=== PATIENT | female | born 1960 | race Caucasian/White ===

== ENCOUNTER → 2016-05-27 | Outpatient (REF) | payer BC ==
[~2016-05-27] MED LIST: BUPR1TAB17 PO; GABA-279 PO; LISI-542 PO; METF1000 PO; SIMV40TA2 PO; TYLE1000 PO; ZOLP5TAB PO
== END ==
LOC: M LAB REF 14:57
PROVIDERS: ATTEND Internal Medicine Medical Oncology
DX: C54.1 Malignant neoplasm of endometrium (principal)

== ENCOUNTER → 2016-05-29 | Outpatient (CLI) | payer BC | LOC: M HL 10:39 | PROVIDERS: ATTEND Physician Assistant | DX: Z71.3 Dietary counseling and surveillance (principal); E11.65 Type 2 diabetes mellitus with hyperglycemia ==

== ENCOUNTER → 2016-07-02 | Outpatient (CLI) | payer BC | LOC: M HL 11:00 | PROVIDERS: ATTEND Physician Assistant | DX: Z71.3 Dietary counseling and surveillance (principal); E11.65 Type 2 diabetes mellitus with hyperglycemia ==

== ENCOUNTER → 2016-09-25 | Outpatient (REF) | payer BC | LOC: M LAB REF 16:50 | PROVIDERS: ATTEND Internal Medicine Medical Oncology | DX: C54.1 Malignant neoplasm of endometrium (principal) ==

== ENCOUNTER → 2016-09-30 | Outpatient (REF) | payer BC ==
[2016-09-30 12:41] LABS: ALBUMIN 3.6 GM/DL (3.2-5.2); ALBUMIN/GLOBULIN RATIO 1.09 (1.00-1.93); ALKALINE PHOSPHATASE 78 U/L (45-117); ALT/SGPT 15 U/L (12-78); ANION GAP 10 MEQ/L (8-16); AST/SGOT 16 U/L (15-37); BILIRUBIN,TOTAL 0.3 MG/DL (0.2-1.0); BLOOD UREA NITROGEN 26 MG/DL (7-18); CARBON DIOXIDE LEVEL 23 MEQ/L (21-32); CHLORIDE LEVEL 107 MEQ/L (98-107); CHOLESTEROL LEVEL 149 MG/DL (<200); CREATININE FOR GFR 0.91 MG/DL (0.55-1.02); GLOMERULAR FILTRATION RATE > 60.0 (>51); GLUCOSE, FASTING 123 MG/DL (70-105); POTASSIUM SERUM 4.6 MEQ/L (3.5-5.1); SODIUM LEVEL 140 MEQ/L (136-145); TOTAL PROTEIN 6.9 GM/DL (6.4-8.2); TRIGLYCERIDES LEVEL 67 MG/DL (<150)
== END ==
LOC: M LABDRAW1 11:26
PROVIDERS: ATTEND Physician Assistant
DX: E11.65 Type 2 diabetes mellitus with hyperglycemia (principal); E78.5 Hyperlipidemia, unspecified

== ENCOUNTER → 2016-10-22 | Outpatient (CLI) | payer BC ==
--- NOTE | 2016-10-22 14:38 | REP ---
FOCUSED LEFT BREAST ULTRASOUND: HISTORY: Palpable mass left breast at 11-o'clock position at the sternal border. Comparison mammography April 16, 2016. FINDINGS: Scanning in the region of the 11-o'clock position mass as directed by the patient shows normal subcutaneous and underlying skeletal muscle soft tissue. No cyst, mass, acoustic shadowing or architectural distortion is seen. IMPRESSION: BIRADS category 1 negative focused left breast sonography. This negative report should not dissuade one from biopsy of a palpable lump depending on its clinical characteristics. Clinical follow-up is advised.
== END ==
LOC: M WHC 12:55
PROVIDERS: ATTEND Physician Assistant
DX: N63 Unspecified lump in breast (principal)

== ENCOUNTER → 2017-01-27 | Outpatient (REF) | payer BC, MEDICAID, SELFPAY ==
[~2017-01-27] MED LIST changes: -BUPR1TAB17 PO; +BUPR1TAB53 PO; -METF1000 PO; +METF10004 PO
== END ==
LOC: M LABDRAW1 15:42
PROVIDERS: ATTEND Physician Assistant
DX: Z11.59 Encounter for screening for other viral diseases (principal)

== ENCOUNTER → 2017-06-26 | Outpatient (CLI) | payer OTHER | LOC: M WHC 10:32 | DX: Z12.31 Encounter for screening mammogram for malignant neoplasm of breast (principal) | CPT/HCPCS: 77067 ==

== ENCOUNTER → 2017-06-26 | Outpatient (REF) | payer OTHER | LOC: M SFHCWAGY 11:07 | DX: Z08 Encounter for follow-up examination after completed treatment for malignant neoplasm (principal) ==

== ENCOUNTER → 2017-07-31 | Outpatient (REF) | payer OTHER ==
[2017-08-01 11:13] LABS: CA 125 10.9 U/ML (<30.2)
== END ==
LOC: M LAB REF 13:45
DX: C54.1 Malignant neoplasm of endometrium (principal)

== ENCOUNTER → 2017-09-16 | Outpatient (REF) | payer OTHER ==
[2017-09-16 13:03] LABS: ANION GAP 8 MEQ/L (8-16); BLOOD UREA NITROGEN 23 MG/DL (7-18); CALCIUM LEVEL 9.3 MG/DL (8.5-10.1); CARBON DIOXIDE LEVEL 27 MEQ/L (21-32); CHLORIDE LEVEL 107 MEQ/L (98-107); CHOLESTEROL LEVEL 134 MG/DL (<200); CHOLESTEROL RISK RATIO 2.093 (<5); CREATININE FOR GFR 0.99 MG/DL (0.55-1.30); GLOMERULAR FILTRATION RATE > 60.0 (>51); GLUCOSE, FASTING 121 MG/DL (70-100); HDL CHOLESTEROL 64 MG/DL (>40); LDL CHOLESTEROL 55.4 MG/DL (<100); NON-HDL-C 70 MG/DL; POTASSIUM SERUM 4.8 MEQ/L (3.5-5.1); SODIUM LEVEL 142 MEQ/L (136-145); TRIGLYCERIDES LEVEL 73 MG/DL (<150)
[2017-09-16 13:49] LABS: ESTIMATED AVERAGE GLUCOSE 134 MG/DL (60-110); HEMOGLOBIN A1c 6.3 %
[2017-09-16 13:50] LABS: MALB URINE SIEMENS 10.9 MG/L; MAU/CREAT RATIO 7.7 MCG/MG (0.0-30.0)
== END ==
LOC: M SFHCPLAZ 09:15
DX: E11.65 Type 2 diabetes mellitus with hyperglycemia (principal)

== ENCOUNTER → 2017-12-09 | Outpatient (CLI) | payer OTHER | LOC: M PAIN 14:15 | DX: M79.1 Myalgia (principal); M54.5 Low back pain; M54.6 Pain in thoracic spine; G89.29 Other chronic pain; M46.96 Unspecified inflammatory spondylopathy, lumbar region; M25.561 Pain in right knee; M25.562 Pain in left knee; L40.9 Psoriasis, unspecified; F32.9 Major depressive disorder, single episode, unspecified; F41.9 Anxiety disorder, unspecified; E11.9 Type 2 diabetes mellitus without complications; M19.90 Unspecified osteoarthritis, unspecified site; E66.01 Morbid (severe) obesity due to excess calories; Z68.43 Body mass index [BMI] 50.0-59.9, adult; Z79.84 Long term (current) use of oral hypoglycemic drugs; Z79.899 Other long term (current) drug therapy; Z88.1 Allergy status to other antibiotic agents; Z88.8 Allergy status to other drugs, medicaments and biological substances; Z91.010 Allergy to peanuts; Z87.891 Personal history of nicotine dependence | CPT/HCPCS: G0463 ==

== ENCOUNTER → 2017-12-25 | Outpatient (REF) | payer OTHER | LOC: M SFHCWAGY 11:48 | DX: Z85.42 Personal history of malignant neoplasm of other parts of uterus (principal); Z08 Encounter for follow-up examination after completed treatment for malignant neoplasm | CPT/HCPCS: 88142 ==

== ENCOUNTER → 2017-12-31 | Outpatient (CLI) | payer OTHER ==
[~2017-12-31] MED LIST changes: +BUPIVACAINE HCL 0.25% 10 ML VIAL As Ordered; +BUPIVACAINE HCL 0.25% 30 ML VIAL As Ordered; -BUPR1TAB53 PO; -GABA-279 PO; -LISI-542 PO; -METF10004 PO; -SIMV40TA2 PO; +TRIAMCINOLONE ACETONIDE SUSP 40 MG/ML VIAL (J3301) As Ordered; -TYLE1000 PO; -ZOLP5TAB PO; +diazePAM 5 MG TAB As Ordered
== END ==
LOC: M PAIN 14:45
DX: G89.29 Other chronic pain (principal); M79.1 Myalgia; M54.5 Low back pain; E11.9 Type 2 diabetes mellitus without complications; F32.9 Major depressive disorder, single episode, unspecified; F41.9 Anxiety disorder, unspecified; L40.9 Psoriasis, unspecified; M19.90 Unspecified osteoarthritis, unspecified site; E66.01 Morbid (severe) obesity due to excess calories; Z68.43 Body mass index [BMI] 50.0-59.9, adult; Z79.1 Long term (current) use of non-steroidal anti-inflammatories (NSAID); Z79.84 Long term (current) use of oral hypoglycemic drugs; Z79.899 Other long term (current) drug therapy; Z88.1 Allergy status to other antibiotic agents; Z88.8 Allergy status to other drugs, medicaments and biological substances; Z91.010 Allergy to peanuts; Z90.710 Acquired absence of both cervix and uterus; Z87.891 Personal history of nicotine dependence
CPT/HCPCS: J3301

== ENCOUNTER → 2018-01-07 | Outpatient (REF) | payer OTHER ==
[2018-01-07 12:17] LABS: ERYTHROCYTE SEDIMENTATION RATE 54 mm/hr (0-30)
[2018-01-07 12:38] LABS: C REACTIVE PROTEIN QUANTITATIV 1.08 MG/DL (0.00-0.30)
[2018-01-07 12:38] LABS: RHEUMATOID FACTOR QUANT < 10.0 IU/ML (<15.0)
[2018-01-14 14:18] LABS: ANTINUCLEAR ANTIBODIES DIRECT Negative (Negative); HLA-B27 Negative (.)
== END ==
LOC: M SFHCPLAZ 08:27
DX: M13.0 Polyarthritis, unspecified (principal)

== ENCOUNTER → 2018-01-09 | Outpatient (CLI) | payer OTHER | LOC: M RAD 11:13 | DX: M25.562 Pain in left knee (principal) | CPT/HCPCS: 73560 ==

== ENCOUNTER → 2018-02-02 | Outpatient (CLI) | payer OTHER ==
[~2018-02-02] MED LIST changes: -BUPIVACAINE HCL 0.25% 10 ML VIAL As Ordered; +ISOVUE-M 300 61% 15ML VIAL (Q9967) As Ordered; +LIDOCAINE 1% SDV INJ 30 ML VIAL As Ordered; -TRIAMCINOLONE ACETONIDE SUSP 40 MG/ML VIAL (J3301) As Ordered; -diazePAM 5 MG TAB As Ordered
== END ==
LOC: M PAIN 11:15
DX: G89.29 Other chronic pain (principal); M47.816 Spondylosis without myelopathy or radiculopathy, lumbar region; M47.817 Spondylosis without myelopathy or radiculopathy, lumbosacral region; F32.9 Major depressive disorder, single episode, unspecified; F41.9 Anxiety disorder, unspecified; E11.9 Type 2 diabetes mellitus without complications; L40.9 Psoriasis, unspecified; G47.30 Sleep apnea, unspecified; E66.01 Morbid (severe) obesity due to excess calories; Z68.43 Body mass index [BMI] 50.0-59.9, adult; Z79.84 Long term (current) use of oral hypoglycemic drugs; Z79.899 Other long term (current) drug therapy; Z88.1 Allergy status to other antibiotic agents; Z88.8 Allergy status to other drugs, medicaments and biological substances; Z91.010 Allergy to peanuts; Z90.710 Acquired absence of both cervix and uterus; Z87.891 Personal history of nicotine dependence; Z85.40 Personal history of malignant neoplasm of unspecified female genital organ
CPT/HCPCS: Q9967

== ENCOUNTER → 2018-02-03 | Outpatient (REF) | payer OTHER | LOC: M LAB REF 13:34 | DX: C54.1 Malignant neoplasm of endometrium (principal) | CPT/HCPCS: 86304 ==

== ENCOUNTER → 2018-03-02 | Outpatient (CLI) | payer OTHER | LOC: M PAIN 11:00 | DX: M79.18 Myalgia, other site (principal); E11.9 Type 2 diabetes mellitus without complications; L40.9 Psoriasis, unspecified; G47.33 Obstructive sleep apnea (adult) (pediatric); M19.90 Unspecified osteoarthritis, unspecified site; F32.9 Major depressive disorder, single episode, unspecified; F41.9 Anxiety disorder, unspecified; E66.01 Morbid (severe) obesity due to excess calories; Z68.43 Body mass index [BMI] 50.0-59.9, adult; Z79.84 Long term (current) use of oral hypoglycemic drugs; Z79.899 Other long term (current) drug therapy; Z88.1 Allergy status to other antibiotic agents; Z88.8 Allergy status to other drugs, medicaments and biological substances; Z91.010 Allergy to peanuts; Z90.710 Acquired absence of both cervix and uterus; Z85.42 Personal history of malignant neoplasm of other parts of uterus; Z87.891 Personal history of nicotine dependence | CPT/HCPCS: G0463 ==

== ENCOUNTER → 2018-06-01 | Outpatient (REF) | payer OTHER ==
[~2018-06-01] MED LIST changes: -BUPIVACAINE HCL 0.25% 30 ML VIAL As Ordered; +BUPR1TAB53 PO; +GABA-1171 PO; -ISOVUE-M 300 61% 15ML VIAL (Q9967) As Ordered; -LIDOCAINE 1% SDV INJ 30 ML VIAL As Ordered; +LISI-542 PO; +METF10004 PO; +SIMV40TA2 PO; +TRUL0.5I SC; +TYLE1000 PO; +ZOLP5TAB PO
[2018-06-01 13:03] LABS: CHOLESTEROL RISK RATIO 2.56 (<5)
[2018-06-01 13:07] LABS: CALCIUM LEVEL 9.5 MG/DL (8.5-10.1); CREATININE FOR GFR 1.1 MG/DL (0.55-1.30); GLOMERULAR FILTRATION RATE 54.3 (>51)
[2018-06-01 14:24] LABS: HEMOGLOBIN A1c 6.3 %
[2018-06-01 14:55] LABS: MALB URINE SIEMENS 30.6 MG/L
== END ==
LOC: M SFHCPLAZ 09:18
PROVIDERS: ATTEND Family Medicine
DX: E11.65 Type 2 diabetes mellitus with hyperglycemia (principal); E78.5 Hyperlipidemia, unspecified

== ENCOUNTER → 2018-06-04 | Outpatient (REF) | payer OTHER | LOC: M SFHCPLAZ 15:19 | PROVIDERS: ATTEND Internal Medicine Rheumatology | DX: M25.50 Pain in unspecified joint (principal) ==

== ENCOUNTER → 2018-06-09 | Outpatient (CLI) | payer OTHER ==
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
== END ==
LOC: M PAIN 13:00
PROVIDERS: ATTEND Nurse Practitioner Family
DX: G62.9 Polyneuropathy, unspecified (principal); G89.29 Other chronic pain; M79.7 Fibromyalgia; F32.9 Major depressive disorder, single episode, unspecified; F41.9 Anxiety disorder, unspecified; E11.65 Type 2 diabetes mellitus with hyperglycemia; E11.40 Type 2 diabetes mellitus with diabetic neuropathy, unspecified; M19.90 Unspecified osteoarthritis, unspecified site; M06.9 Rheumatoid arthritis, unspecified; E66.01 Morbid (severe) obesity due to excess calories; Z68.43 Body mass index [BMI] 50.0-59.9, adult; Z92.3 Personal history of irradiation; Z92.21 Personal history of antineoplastic chemotherapy; Z87.891 Personal history of nicotine dependence; Z88.1 Allergy status to other antibiotic agents; Z88.8 Allergy status to other drugs, medicaments and biological substances; Z91.010 Allergy to peanuts; Z79.84 Long term (current) use of oral hypoglycemic drugs; Z79.899 Other long term (current) drug therapy

== ENCOUNTER → 2018-06-15 | Outpatient (CLI) | payer OTHER ==
--- NOTE | 2018-06-15 14:54 | REP ---
Clinical: Polyarthralgia. Technique: Single AP weightbearing view of the right and left knee. Findings: Advanced tricompartmental osteoarthritic degenerative changes are appreciated. Findings include joint space narrowing primarily involving the medial compartments as well as osteophytosis, subchondral sclerosis and chondrocalcinosis. Impression: Symmetric advanced tricompartmental osteoarthritic changes. Electronically Signed by Zia Black MD 06/15/2018 02:46 P
--- NOTE | 2018-06-15 14:56 | REP ---
Clinical: Polyarthralgia. Technique: AP, lateral, bilateral oblique views of the right and left hand. Findings: Mild osteoarthritic degenerative changes include subtle subchondral sclerosis and minimal joint space narrowing primarily involving the interphalangeal joints. Findings appear relatively symmetric. Moderate osteoarthritic degenerative changes are also identified at the first carpometacarpal joints bilaterally (right greater than left) including subchondral heterogeneity, joint space narrowing and subluxation as well as subtle periarticular spurring. Osteoarthritic changes at the radiocarpal joint lines are also identified including subchondral sclerosis, mild joint space narrowing and small amounts of chondrocalcinosis Impression: Osteoarthritic degenerative changes as noted above. Electronically Signed by Zia Black MD 06/15/2018 02:48 P
== END ==
LOC: M RAD 14:15
PROVIDERS: ATTEND Internal Medicine Rheumatology
DX: M25.50 Pain in unspecified joint (principal)

== ENCOUNTER → 2018-09-02 | Outpatient (REF) | payer OTHER ==
[~2018-09-02] MED LIST changes: +DICL50TAB PO; +GABA800T4 PO
== END ==
LOC: M SFHCWAGY 10:45
PROVIDERS: ATTEND Nurse Practitioner Family
DX: Z12.72 Encounter for screening for malignant neoplasm of vagina (principal)

== ENCOUNTER → 2018-09-02 | Outpatient (CLI) | payer OTHER ==
--- NOTE | 2018-09-02 14:35 | REPMRS ---
Patient History The patient states she had a clinical breast exam in 08/2018. Patient is postmenopausal, has history of endometrial cancer at age 54, had previous chemotherapy at age 54, and had first child at age 33. Family history of endometrial cancer at age 57 in mother. No Hormone Replacement Therapy Digital Woman Screen Mammo: September 02, 2018 - Exam #: [id number] Bilateral CC and MLO view(s) were taken. Technologist: Pam Pérez, Technologist Prior study comparison: June 26, 2017, digital woman screen mammo performed at [facility] Anne Fogarty to [employer]. April 16, 2016, digital woman screen mammo performed at [facility] Anne Fogarty to [employer]. FINDINGS: The breast tissue is almost entirely fat. There has been no change in the appearance of the mammogram from the prior studies. There is no interval development of dominant mass, architectural distortion, or clustered microcalcification typical of malignancy. 3-D tomosynthesis shows no additional findings. Assessment: BI-RADS/ACR category 1 mammogram. Negative Mammogram. Recommendation Routine screening mammogram of both breasts in 1 year (for women over age 40). This patient's Lifetime Breast Cancer RIsk is estimated at 12.6 %. This mammogram was interpreted with the aid of an FDA-approved computer-aided dectection system. Electronically Signed By: Viral Orr MD 09/02/18 [id number]
== END ==
LOC: M WHC 10:35
PROVIDERS: ATTEND Nurse Practitioner Family
DX: Z12.31 Encounter for screening mammogram for malignant neoplasm of breast (principal)

== ENCOUNTER → 2018-09-04 | Outpatient (CLI) | payer OTHER | LOC: M PAIN 10:30 | PROVIDERS: ATTEND Nurse Practitioner Family | DX: G62.9 Polyneuropathy, unspecified (principal); G89.29 Other chronic pain; M79.7 Fibromyalgia; Z86.59 Personal history of other mental and behavioral disorders; E11.9 Type 2 diabetes mellitus without complications; M19.90 Unspecified osteoarthritis, unspecified site; G56.03 Carpal tunnel syndrome, bilateral upper limbs; Z87.891 Personal history of nicotine dependence; Z88.1 Allergy status to other antibiotic agents; Z88.8 Allergy status to other drugs, medicaments and biological substances; Z91.010 Allergy to peanuts; E66.01 Morbid (severe) obesity due to excess calories; Z68.43 Body mass index [BMI] 50.0-59.9, adult; Z79.84 Long term (current) use of oral hypoglycemic drugs; Z79.899 Other long term (current) drug therapy ==

== ENCOUNTER → 2018-09-10 | Outpatient (REF) | payer OTHER ==
[2018-09-10 16:44] LABS: BLOOD UREA NITROGEN 21 MG/DL (7-18); C REACTIVE PROTEIN QUANTITATIV 0.58 MG/DL (0.00-0.30); CARBON DIOXIDE LEVEL 27 MEQ/L (21-32); CHLORIDE LEVEL 107 MEQ/L (98-107); CPK CREATINE PHOSPHOKINASE 56 U/L (26-192); CREATININE FOR GFR 1.08 MG/DL (0.55-1.30); GLOMERULAR FILTRATION RATE 55.5 (>51); GLUCOSE, FASTING 140 MG/DL (70-100); MAGNESIUM LEVEL 1.5 MG/DL (1.8-2.4); NT-PRO BNP 188 PG/ML (<125); POTASSIUM SERUM 4.9 MEQ/L (3.5-5.1); SODIUM LEVEL 141 MEQ/L (136-145); TROPONIN I < 0.02 NG/ML (< 0.10)
== END ==
LOC: M SFHCPLAZ 15:33
PROVIDERS: ATTEND Family Medicine
DX: M62.81 Muscle weakness (generalized) (principal); R07.9 Chest pain, unspecified

== ENCOUNTER → 2018-10-19 | Outpatient (REF) | payer OTHER ==
[2018-10-19 13:40] LABS: RUBELLA IgG QUALITATIVE IMMUNE (IMMUNE)
[2018-10-20 10:28] LABS: MUMPS VIRUS IgG ANTIBODY 21.3 AU/mL (Immune >10.9); RUBEOLA IgG ANTIBODY <25.0 AU/mL (Immune >29.9)
== END ==
LOC: M SFHCPLAZ 10:54
PROVIDERS: ATTEND Family Medicine
DX: Z78.9 Other specified health status (principal)

== ENCOUNTER → 2018-12-01 | Outpatient (REF) | payer OTHER ==
[2018-12-01 13:41] LABS: FREE T4 1.01 NG/DL (0.76-1.46); THYROID STIMULATING HORMONE 1.95 uIU/ML (0.358-3.740)
[2018-12-01 13:42] LABS: TOTAL 25(OH) VITAMIN D 14.8 NG/ML (30.0-100.0)
== END ==
LOC: M SFHCPLAZ 11:16
PROVIDERS: ATTEND Family Medicine
DX: R05 Cough (principal); M62.81 Muscle weakness (generalized); R53.82 Chronic fatigue, unspecified

== ENCOUNTER → 2018-12-02 | Outpatient (CLI) | payer OTHER ==
--- NOTE | 2018-12-02 12:32 | REP ---
PA and lateral chest: Comparison is 07/27/2001.The lung anthony are clear. The cardiac size is normal. The abdon, mediastinum, and skeletal structures are unremarkable. Impression: Negative PA and lateral chest. There is no interval change. Electronically Signed by Mohit Sullivan MD 12/02/2018 12:24 P
== END ==
LOC: M LAB 10:58 → M RAD 10:58
PROVIDERS: ATTEND Family Medicine
DX: R05 Cough (principal)

== ENCOUNTER → 2018-12-11 | Outpatient (CLI) | payer OTHER ==
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
== END ==
LOC: M PAIN 13:30
PROVIDERS: ATTEND Family Medicine
DX: G62.9 Polyneuropathy, unspecified (principal); L40.9 Psoriasis, unspecified; F32.9 Major depressive disorder, single episode, unspecified; F41.9 Anxiety disorder, unspecified; E66.01 Morbid (severe) obesity due to excess calories; H40.9 Unspecified glaucoma; E11.9 Type 2 diabetes mellitus without complications; M79.7 Fibromyalgia; Z85.44 Personal history of malignant neoplasm of other female genital organs; R91.1 Solitary pulmonary nodule; G56.03 Carpal tunnel syndrome, bilateral upper limbs; M51.26 Other intervertebral disc displacement, lumbar region; N39.3 Stress incontinence (female) (male); H04.123 Dry eye syndrome of bilateral lacrimal glands; Z87.891 Personal history of nicotine dependence; Z90.710 Acquired absence of both cervix and uterus; Z86.010 Personal history of colon polyps; Z68.42 Body mass index [BMI] 45.0-49.9, adult; Z90.49 Acquired absence of other specified parts of digestive tract; Z79.84 Long term (current) use of oral hypoglycemic drugs; Z79.899 Other long term (current) drug therapy; Z88.1 Allergy status to other antibiotic agents; Z88.8 Allergy status to other drugs, medicaments and biological substances; Z91.010 Allergy to peanuts

== ENCOUNTER → 2019-02-18 | Outpatient (CLI) | payer OTHER ==
[~2019-02-18] MED LIST changes: +ACET-683 PO; +BACT800T5 PO; +EZET10TA21 PO; +ZOLO50TA PO
== END ==
LOC: M PT 12:26
PROVIDERS: ATTEND Family Medicine
DX: Z74.09 Other reduced mobility (principal)

== ENCOUNTER 2019-02-24 08:30 | Day surgery (SDC) | payer OTHER ==
[~2019-02-24] VITALS: Ht 152.4 cm; Wt 138.3 kg
[~2019-02-24 08:30] MED LIST changes: +NS 1,000 ML IV ONE
[2019-02-24] MEDS ORDERED: PROPOFOL 200 MG/20 ML VIAL As Ordered ONE (09:59)
[2019-02-24] MEDS ORDERED: LIDOCAINE 2% INJ 100 MG/5 ML SDV (FOR ANES.) As Ordered ONE (09:59)
--- NOTE | 2019-02-24 10:23 | ROOR ---
Patient Name: Shanthi Gallagher Procedure Date: 02/24/2019 9:58 AM Date of : 1960 Age: 58 Room: [facility] Gender: Female Note Status: Finalized Procedure: Total Colonoscopy to Cecum + Biopsy Polypectomy Indications: High risk colon cancer surveillance: Personal history of colonic polyps, Last colonoscopy: 2015 Providers: Wood Marcos MD Referring MD: Yun Peralta MD Requesting Provider: Medicines: Monitored Anesthesia Care Complications: No immediate complications. Procedure: Pre-Anesthesia Assessment: - The heart rate, respiratory rate, oxygen saturations, blood pressure, adequacy of pulmonary ventilation, and response to care were monitored throughout the procedure. The Colonoscope was introduced through the anus and advanced to the cecum, identified by appendiceal orifice and ileocecal valve. The colonoscopy was performed without difficulty. The patient tolerated the procedure well. The quality of the bowel preparation was excellent. Findings: The perianal and digital rectal examinations were normal. Non-bleeding internal hemorrhoids were found during retroflexion. The hemorrhoids were small and Grade I (internal hemorrhoids that do not prolapse). A small polyp was found in the ascending colon. The polyp was sessile. The polyp was removed with a jumbo cold forceps. Resection and retrieval were complete. The exam was otherwise without abnormality on direct and retroflexion views. Impression: - Non-bleeding internal hemorrhoids. - One small polyp in the ascending colon, removed with a jumbo cold forceps. Resected and retrieved. - The examination was otherwise normal on direct and retroflexion views. - The exam was otherwise normal to the cecum. Recommendation: - Patient has a contact number available for emergencies. The signs and symptoms of potential delayed complications were discussed with the patient. Return to normal activities tomorrow. Written discharge instructions were provided to the patient. - High fiber diet. - Discharge patient to home. - Continue present medications. - Await pathology results. - Telephone GI clinic for pathology results in 1 week. - Repeat colonoscopy in 5 years for surveillance. - Return to referring physician. - The findings and recommendations were discussed with the patient's family. Wood Marcos MD Wood Marcos MD 02/24/2019 10:22:49 AM Electronically signed by Wood Marcos MD Number of Addenda: 0 Note Initiated On: 02/24/2019 9:58 AM Estimated Blood Loss: Estimated blood loss: none.
[2019-02-24 10:38] VITALS: BP 111/75
== END 2019-02-24 10:50 | disposition home or self-care (01) ==
LOC: M OPP 08:30
PROVIDERS: ATTEND Internal Medicine Gastroenterology
DX: Z12.11 Encounter for screening for malignant neoplasm of colon (principal); Z86.010 Personal history of colon polyps; K64.0 First degree hemorrhoids; D12.2 Benign neoplasm of ascending colon; I10 Essential (primary) hypertension; E11.9 Type 2 diabetes mellitus without complications; Z92.21 Personal history of antineoplastic chemotherapy; M19.90 Unspecified osteoarthritis, unspecified site; M79.7 Fibromyalgia; M11.20 Other chondrocalcinosis, unspecified site; F41.9 Anxiety disorder, unspecified; F32.9 Major depressive disorder, single episode, unspecified; R51 Headache; G62.9 Polyneuropathy, unspecified; R56.9 Unspecified convulsions; Z92.3 Personal history of irradiation; G47.8 Other sleep disorders; C54.1 Malignant neoplasm of endometrium; Z87.891 Personal history of nicotine dependence; Z88.8 Allergy status to other drugs, medicaments and biological substances; Z88.1 Allergy status to other antibiotic agents; Z91.010 Allergy to peanuts; Z79.84 Long term (current) use of oral hypoglycemic drugs; Z79.899 Other long term (current) drug therapy

== ENCOUNTER → 2019-03-16 | Outpatient (CLI) | payer OTHER ==
[~2019-03-16] MED LIST changes: -NS 1,000 ML IV ONE
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
== END ==
LOC: M PAIN 10:00
PROVIDERS: ATTEND Family Medicine
DX: G62.9 Polyneuropathy, unspecified (principal); L40.9 Psoriasis, unspecified; F41.9 Anxiety disorder, unspecified; F32.9 Major depressive disorder, single episode, unspecified; E66.01 Morbid (severe) obesity due to excess calories; Z68.43 Body mass index [BMI] 50.0-59.9, adult; H40.9 Unspecified glaucoma; E11.9 Type 2 diabetes mellitus without complications; R91.1 Solitary pulmonary nodule; M79.7 Fibromyalgia; M19.90 Unspecified osteoarthritis, unspecified site; Z85.42 Personal history of malignant neoplasm of other parts of uterus; Z92.3 Personal history of irradiation; Z92.21 Personal history of antineoplastic chemotherapy; Z90.710 Acquired absence of both cervix and uterus; Z87.891 Personal history of nicotine dependence; Z79.84 Long term (current) use of oral hypoglycemic drugs; Z79.899 Other long term (current) drug therapy; Z90.49 Acquired absence of other specified parts of digestive tract; Z88.1 Allergy status to other antibiotic agents; Z88.8 Allergy status to other drugs, medicaments and biological substances; Z91.010 Allergy to peanuts

== ENCOUNTER → 2019-06-16 | Outpatient (CLI) | payer OTHER ==
[~2019-06-16] MED LIST changes: -SIMV40TA2 PO; +SIMV40TA20 PO
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
== END ==
LOC: M PAIN 09:30
PROVIDERS: ATTEND Family Medicine
DX: G89.29 Other chronic pain (principal); E11.9 Type 2 diabetes mellitus without complications; E78.5 Hyperlipidemia, unspecified; I10 Essential (primary) hypertension; Z86.59 Personal history of other mental and behavioral disorders; M79.7 Fibromyalgia; Z87.891 Personal history of nicotine dependence; Z88.1 Allergy status to other antibiotic agents; Z88.8 Allergy status to other drugs, medicaments and biological substances; Z91.010 Allergy to peanuts; E66.01 Morbid (severe) obesity due to excess calories; Z68.44 Body mass index [BMI] 60.0-69.9, adult; Z79.84 Long term (current) use of oral hypoglycemic drugs; Z79.899 Other long term (current) drug therapy

== ENCOUNTER → 2019-06-21 | Outpatient (REF) | payer OTHER ==
[2019-06-21 13:32] LABS: BASO # 0.1 10^3/uL (0.0-0.2); BASO % 0.9 % (0.0-1.0); EOS # 0.5 10^3/uL (0.0-0.5); EOS % 8.9 % (0.0-3.0); HEMATOCRIT 41.5 % (36.0-47.0); HEMOGLOBIN 12.9 g/dl (12.0-15.5); LYMPH # 1.4 10^3/uL (1.5-5.0); LYMPH % 25.1 % (24.0-44.0); MEAN CORPUSCULAR HEMOGLOBIN 27.2 pg (27.0-33.0); MEAN CORPUSCULAR HGB CONC 31.1 g/dl (32.0-36.5); MEAN CORPUSCULAR VOLUME 87.4 fl (80.0-96.0); MONO # 0.4 10^3/uL (0.0-0.8); MONO % 6.2 % (0.0-5.0); NEUTROPHILS # 3.3 10^3/uL (1.5-8.5); NEUTROPHILS % 58.5 % (36.0-66.0); PLATELET COUNT, AUTOMATED 269 10^3/uL (150-450); RED BLOOD COUNT 4.75 10^6/uL (4.00-5.40); WHITE BLOOD COUNT 5.6 10^3/uL (4.0-10.0)
[2019-06-21 13:49] LABS: ALBUMIN 3.5 GM/DL (3.2-5.2); BILIRUBIN,TOTAL 0.3 MG/DL (0.2-1.0); CALCIUM LEVEL 9.7 MG/DL (8.5-10.1); CHOLESTEROL RISK RATIO 2.803 (<5); CREATININE FOR GFR 1.19 MG/DL (0.55-1.30); GLOMERULAR FILTRATION RATE 49.4 (>51); MAGNESIUM LEVEL 1.8 MG/DL (1.8-2.4); POTASSIUM SERUM 4.6 MEQ/L (3.5-5.1); TOTAL PROTEIN 7.2 GM/DL (6.4-8.2)
[2019-06-21 14:10] LABS: MAU/CREAT RATIO 11.5 MCG/MG (0.0-30.0)
[2019-06-21 14:21] LABS: HEMOGLOBIN A1c 7.5 %
== END ==
LOC: M LABDRAW1 12:57
PROVIDERS: ATTEND Family Medicine
DX: E11.9 Type 2 diabetes mellitus without complications (principal); I10 Essential (primary) hypertension; E78.2 Mixed hyperlipidemia; Z85.42 Personal history of malignant neoplasm of other parts of uterus; E55.9 Vitamin D deficiency, unspecified; E83.42 Hypomagnesemia

== ENCOUNTER → 2019-07-05 | Outpatient (REF) | payer OTHER ==
[2019-07-05 12:59] LABS: APPEARANCE, URINE HAZY (CLEAR); BACTERIA, URINE AUTO 1+ (NEGATIVE); BILIRUBIN, URINE AUTO NEGATIVE (NEGATIVE); BLOOD, URINE BLOOD NEGATIVE (NEGATIVE); COLOR, URINE YELLOW (YELLOW); GLUCOSE, URINE (UA) AUTO 1+ mg/dL (NEGATIVE); KETONE, URINE AUTO NEGATIVE (NEGATIVE); LEUKOCYTE ESTERASE, URINE AUTO NEGATIVE (NEGATIVE); NITRITE, URINE AUTO NEGATIVE (NEGATIVE); PROTEIN, URINE AUTO NEGATIVE (NEGATIVE); RBC, URINE AUTO 1 /HPF (0-3); SPECIFIC GRAVITY URINE AUTO 1.023 (1.002-1.035); SQUAMOUS EPITHELIAL CELL UR AU 2 /HPF (0-6); UROBILINOGEN, URINE AUTO 0.2 mg/dL (0.0-2.0); WBC, URINE AUTO 4 /HPF (0-3)
[2019-07-05 13:41] LABS: CALCIUM LEVEL 9.3 MG/DL (8.5-10.1); CREATININE FOR GFR 1.3 MG/DL (0.55-1.30); GLOMERULAR FILTRATION RATE 44.6 (>51); POTASSIUM SERUM 4.5 MEQ/L (3.5-5.1)
== END ==
LOC: M LABDRAW1 12:12
PROVIDERS: ATTEND Family Medicine
DX: R94.4 Abnormal results of kidney function studies (principal); R31.0 Gross hematuria

== ENCOUNTER → 2019-07-08 | Outpatient (CLI) | payer OTHER ==
--- NOTE | 2019-07-08 18:02 | REPVR ---
PROCEDURE INFORMATION: Exam: US Retroperitoneal Limited, Kidneys Exam date and time: 07/08/2019 5:08 PM Age: 58 years old Clinical indication: Abnormal findings; Abnormal lab test; Abnormal kidney function lab tests; Additional info: Decreased gfr TECHNIQUE: Imaging protocol: Real-time ultrasound of the retroperitoneum with image documentation. Examination was focused on the kidneys. COMPARISON: CT ABD PELVIS W/O FOL BY WIT 02/14/2016 1:17 PM FINDINGS: Right kidney: Right kidney measures 10.6 x 5.6 x 4.2 cm. Left kidney: Left kidney measures 10.7 x 5.2 x 5.4 cm. Bladder: Bladder not visualized. Examination limited by large patient size and poor acoustic characteristics. IMPRESSION: Unremarkable examination of the right and left kidneys. Electronically signed by: Shan Roblero On 07/08/2019 18:02:36 PM
== END ==
LOC: M RAD 16:43
PROVIDERS: ATTEND Family Medicine
DX: R94.4 Abnormal results of kidney function studies (principal)

== ENCOUNTER → 2019-09-10 | Outpatient (REF) | payer OTHER ==
[2019-09-10 14:05] LABS: HEMOGLOBIN A1c 7.6 %
[2019-09-10 14:07] LABS: CALCIUM LEVEL 9.7 MG/DL (8.5-10.1); CREATININE FOR GFR 1.21 MG/DL (0.55-1.30); GLOMERULAR FILTRATION RATE 48.5 (>51); POTASSIUM SERUM 5.1 MEQ/L (3.5-5.1)
== END ==
LOC: M SFHCPLAZ 10:03
PROVIDERS: ATTEND Family Medicine
DX: E11.9 Type 2 diabetes mellitus without complications (principal); I10 Essential (primary) hypertension

== ENCOUNTER → 2019-09-15 | Outpatient (CLI) | payer OTHER ==
--- NOTE | 2019-09-17 04:30 | ECWPNPC ---
PATIENT NAME: NIDA WORTHINGTON : 1960 GENDER: FEMALE VISIT DATE: 09/15/2019 DISCHARGE DATE: 09/15/19 1150 VISIT LOCKED DATE TIME: PHYSICIAN: ERA GUERRERO RESOURCE: ERA GUERRERO REASON FOR APPOINTMENT 1. 3 MONTH [phone] HISTORY OF PRESENT ILLNESS HISTORY OF PRESENT ILLNESS: PAIN THE PATIENT DESCRIBES THE PAIN... 58-YEAR-OLD FEMALE IN FOR CHRONIC PAIN FOLLOW-UP. SHE RATES HER PAIN AT A 4 OUT OF 10 AND DESCRIBES IT AN ACHE. SHE FEELS HER MEDICATIONS ARE HELPFUL AND DENIES MED SIDE EFFECTS AT THIS TIME. FALL RISK SCREENING: SCREENING :NO FALLS REPORTED IN THE LAST YEAR CURRENT MEDICATIONS TAKING GABAPENTIN 800 MG TABLET 1 CAPSULE ORALLY THREE TIMES A DAY TAKING METFORMIN HCL ER 500 MG TABLET EXTENDED RELEASE 24 HOUR 1 TABLET WITH EVENING MEAL ORALLY THREE TIMES A DAY TAKING ZOLOFT 100 MG TABLET 2 TABLET ORALLY ONCE A DAY TAKING EZETIMIBE 10 MG TABLET 1 TABLET ORALLY ONCE A DAY TAKING DICLOFENAC SODIUM 50 MG TABLET DELAYED RELEASE 1 TABLET WITH FOOD OR MILK ORALLY BID TAKING SYSTANE ULTRA 0.4-0.3 % SOLUTION 1 DROP INTO AFFECTED EYE NEEDED OPHTHALMIC 24 TIME(S) A DAY TAKING ONETOUCH VERIO - STRIP USE TO TEST ONCE A DAY TAKING VITAMIN B12 TAKING MAGNESIUM CHLORIDE 64 MG TABLET DELAYED RELEASE 1 TABLET ORALLY TWICE A DAY TAKING VITAMIN D (CHOLECALCIFEROL) TAKING LANCETS - MISCELLANEOUS 1 LANCET DX: E11.9 DAILY BEFORE BREAKFAST TAKING ONE TOUCH VERIO STRIPS TEST STRIP _ 1 STRIP STRIP DX:E11.65 TWICE A DAY TAKING ONDANSETRON HCL 4 MG TABLET 1 TABLET NEEDED FOR NAUSEA ORALLY EVERY 6 HOURS TAKING MULTIVITAMIN ADULT MEDICATION LIST REVIEWED AND RECONCILED WITH THE PATIENT PAST MEDICAL HISTORY DIABETES MELLITUS TYPE 2 ENDOMETRIAL CANCER, STAGE 3 DIAGNOSED IN 2013 - S/P HYSTERECTOMY (DR LEACH). S/P CHEMO (DR DE LUNA) AND RADIATION (DR MENDENHALL); FOLLOWS WITH [facility] ONC HYPERLIPIDEMIA - STATIN INTOLERANT HYPERTENSION DEPRESSION AND ANXIETY - PLANS TO START TLS PSORIASIS - ELBOW AND ARMPIT; NEUROTIC EXCORIATIONS - DR. ORTIZ MORBID OBESITY, BMI 52 GLAUCOMA, DRY EYE - FOLLOWS WITH DR. ADRIAN HX PULMONARY NODULE, STABLE - PREVIUOSLY SAW DR. FITZGERALD, NO FURTHER SCANS NEEDED FORMER SMOKER, QUIT IN 2003 OA - SAW DR. GRULLON IN THE PAST FIBROMYALGIA SEVERE CARPAL TUNNAL BOTH WRISTS BULGING DISCS IN LOWER BACK; CHRONIC LBP, THORACIC BACK PAIN, CERVICAL BACK PAIN - PAIN CLINIC AGING BRAIN - DR. 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 MYRAID GENETIS TEST NEG 2018 LIFETIME BREAST CANCER RISK 16 % SHINGLES VACCINES: NOVEMBER 2017 HX OF ABNORMAL PAP-ASCUS,FER; NOW S/P HYSTERECTOMY REGADENOSEN NUCLEAR SPECT NORMAL IN 12/2018 STAGE III KIDNEY DISEASE ALLERGIES ERYTHROMYCIN: HIVES - ALLERGY PEANUTS: ANAPHYLAXIS - ALLERGY LUMIGAN: BURNING EYES - ALLERGY TRULICITY: SEVERE DIARRHEA - SIDE EFFECTS BUPROPION HCL: SEIZURES - CONTRAINDICATION LISINOPRIL: COUGH - SIDE EFFECTS ATORVASTATIN CALCIUM: MUSCLE WEAKNESS - SIDE EFFECTS SURGICAL HISTORY C SECTION X2 , 96 TUBAL LIGATION 11/28/95 CHOLECYSTECTOMY 2000 ORAL SURGERY COLONOSCOPY 2000, 2015 TOTAL HYSTERECTOMY RALDonis AND BSO DR LEACH 10/2014 COLONOSCOPY-POLYP REMOVAL - RESULTS WNL 09/2015 ORAL SURGERY 06/2016 BIOPSY LEFT THIGH - LIPOMA COLONOSCOPY - 1 POLYP, REPEAT IN 5 YEARS - DR. MEI 02/2019 FAMILY HISTORY FATHER: 74 YRS, LIVER CANCER, TYPE II DIABETES, RHEUMATOID, DIAGNOSED WITH DIABETES, OTHER MALIGNANT NEOPLASM OF UNSPECIFIED SITE MOTHER: ALIVE 76 YRS, UTERINE CANCER, DX AT AGE 64, TYPE II DIABETES, CORONARY ARTERY DISEASE, HTN, RHEUMATOID, DIABETES, HYPERTENSION, OTHER MALIGNANT NEOPLASM OF UNSPECIFIED SITE SIBLINGS: BROTHER WITH KIDNEY CANCER, DIABETES, HYPERTENSION SON(S): ASPERGER'S SYNDROME DAUGHTER(S): ANXIETY, DEPRESSION, ASTHMA MATERNAL UNCLE: THROAT CANCER ,ANOTHER LIVER CANCER MATERNAL AUNT: [place] SOCIAL HISTORY GENERAL: TOBACCO USE ARE YOU A:FORMER SMOKER HOW LONG HAS IT BEEN SINCE YOU LAST SMOKED?> 10 YEARS LATEX QUESTIONNAIRE LATEX ALLERGY : HAVE YOU EVER DEVELOPED ANY TYPE OF REACTION AFTER HANDLING LATEX PRODUCTS SUCH RUBBER GLOVES, CONDOMS, DIAPHRAGMS, BALLOONS, SOCKS, OR UNDERWEAR?NO LATEX ALLERGY : HAVE YOU EVER DEVELOPED ANY TYPE OF REACTION DURING OR AFTER DENTAL APPOINTMENT, VAGINAL/RECTAL EXAMINATION, SURGICAL PROCEDURE, OR ANY OTHER EXPOSURE?NO DATE ASKED : 06/16/2019 LATEX RISK : HAVE YOU EVER HAD ANY DIFFICULTY BREATHING OR HIVES AFTER EATING OR HANDLING ANY FRUITS, OR VEGETABLES; SUCH KIWI, BANANAS, STONE FRUITS, OR CHESTNUTSNO LATEX RISK : DO YOU HAVE A PREVIOUS PERSONAL HISTORY OF MORE THAN NINE SURGERIES, SPINA BIFIDA, OR REPEATED CATHERIZATIONS? NO LATEX RISK : ARE YOU FREQUENTLY EXPOSED TO LATEX PRODUCTS IN YOUR OCCUPATION?NO BMI CARE GOAL FOLLOW-UP ABOVE NORMAL BMI FOLLOW-UPGIVING ENCOURAGEMENT TO EXERCISE, LIFESTYLE EDUCATION REGARDING DIET ALCOHOL SCREENING DID YOU HAVE A DRINK CONTAINING ALCOHOL IN THE PAST YEAR?NO POINTS0 INTERPRETATIONNEGATIVE RECREATIONAL DRUG USE DRUG USE?NO CAFFEINE CAFFEINE USE?YES 1 CUP COFFEE A DAY SEXUAL HX HAD SEX IN THE LAST 12 MONTHS (VAGINAL, ORAL, OR ANAL)?YES WITHMEN ONLY PREVENTION STRATEGIES DISCUSSED:OTHER USE PROTECTION?NO HAVE YOU EVER HAD AN STD?NO HIV / HEP-C SCREENING HIV TEST OFFERED TO PATIENT:YES DATE OFFERED:11/04/2016 TEST ACCEPTED:NO HEP-C TEST OFFERED TO PATIENT:YES DATE OFFERED:11/04/2016 REASON:PATIENT DECLINED TEST ACCEPTED:YES SABIANISM [id number] NONE LANGUAGE LANGUAGES SPOKEN:KHMER EDUCATION LEVEL OF EDUCATION:COLLEGE BACHELORS DEGREE IN PSYCHOLOGY, ELEMENTARY EDUCATION LEARNING BARRIERS / SPECIAL NEEDS CHANGE FROM LAST VISIT?NO 03/31/19 BARRIERS TO LEARNING?NO HEARING IMPAIRED?NO STATED CONCERN FOR HEARING LOSS, NO FORMAL TESTING YET VISION IMPAIRED?YES COGNITIVELY IMPAIRED?NO :CORRECTIVE LENSES READINESS TO LEARN?YES LEARNING PREFERENCES?NO LEARNING CAPABILITIES PRESENT?YES EMOTIONAL BARRIERS?NO SPECIAL DEVICES?YES :CANE, WALKER ADMINISTRATIVE ASST NEEDED?NO DOMESTIC VIOLENCE ASSAULTED AT AGE 34.. OCCUPATION: DISABLED 100%. DIET: LIMITED PORTIONS, LOW CARB. EXERCISE: NO REGULAR EXERCISE, HAS NOT EXERCISED IN A FEW YEARS BECAUSE OF THE BLEEDING. MARITAL STATUS: , . OTHERS AT HOME: SPOUSE, CHILDREN. NEW PATIENT PAIN DIARY TODAY'S VISIT 09/14/19 PATIENT DESCRIBES PAIN :ACHING, BURNING, HAVE IT ALL THE TIME, SHARP, STABBING, TENDER, THROBBING, SORE, SHOOTING FROM 0-10, WHAT LEVEL IS YOUR PAIN TODAY?4 PRECIPITATING FACTORS NOT TAKING MEDS ALLEVIATING FACTORS MEDS, MOVING AROUND IMPACT ON FUNCTION YES PAIN CLINIC PFS, CLERGY, PUBLIC HEALTH REFERRALS WAS THE PROVIDER NOTIFIED OF ANY PERTINENT INFO?YES HAS THE PATIENT BEEN EDUCATED REGARDING HIS/HER PLAN OF CARE?YES PLEASE DOCUMENT ANY ADDTIONAL DETAILS. TPI INJECTIONS HAS THE PATIENT BEEN EDUCATED REGARDING PAIN, THE RISK FOR PAIN, THE IMPORTANCE OF EFFECTIVE PAIN MANAGEMENT, AND THE PAIN ASSESSMENT PROCESS?YES ADVANCE DIRECTIVE ADVANCE DIRECTIVE DISCUSSED WITH PATIENT:YES PT. HAS HCP DAUGHTER - EVELINE WORTHINGTON [phone] HOSPITALIZATION/MAJOR DIAGNOSTIC PROCEDURE R/T SURGERY DEHYDRATION 2014 REVIEW OF SYSTEMS REVIEWED BY: PROVIDER: JAVON ALONSO . CONSTITUTIONAL: ANY CHANGE IN YOUR MEDICAL CONDITION? YES, STAGE III KIDNEY DISEASE . CHILLS NO . FEVER NO . INFECTION: DO YOU HAVE NEW INFECTIONS? NO . DO YOU HAVE HISTORY OF MRSA? NO . MUSCULOSKELETAL: ANY NEW PATTERNS OF PAIN OR NUMBNESS? NO . GASTROENTEROLOGY: ANY NEW CHANGE IN BOWEL CONTROL? NO . GENITOURINARY: ANY NEW CHANGE IN BLADDER CONTROL? NO . IS THERE A CHANCE YOU COULD BE ? NO . HEMATOLOGY/LYMPH: DO YOU TAKE ANY BLOOD THINNERS? (FOR EXAMPLE- COUMADIN, PLAVIX, AGGRENOX, PLATEL, PRADAXA, OR XARELTO) NO . WHEN WAS YOUR LAST DOSE? DATE: TIME: . NEUROLOGY: HAVE YOU FALLEN IN THE PAST 12 MONTHS? YES, PRIOR TO LAST VISIT . ANY NEW EXTREMITY NUMBNESS OR WEAKNESS? NO . CARDIOLOGY: DO YOU HAVE A PACEMAKER OR DEFIBRILLATOR? NO . RESPIRATORY: HAVE YOU BEEN SICK IN THE PAST WEEK? NO . FEVER NO . FLU LIKE SYMPTOMS? NO . COUGH NO . INTEGUMENTARY: DO YOU HAVE ANY RASHES OR OPEN SORES? YES, SMALL TEAR IN RECTUM, PCP AWARE AND EXAMINED AND PT WAS TOLD IT IS HEALING WELL . ALLERGIC/IMMUNO: ARE YOU ALLERGIC TO IV DYE? NO . ANY NEW ALLERGIES? NO . PSYCHIATRIC: DO YOU HAVE THOUGHTS OF HURTING YOURSELF OR SOMEONE ELSE? NO . ARE YOU ABUSED, NEGLECTED, OR IN AN UNSAFE ENVIRONMENT? NO . ENDOCRINOLOGY: ARE YOU DIABETIC? YES . OTHER: DO YOU NEED ANY PRESCRIPTIONS? NOT SURE . IF YES, PLEASE LIST: ____ . ANY NEW PROBLEMS WITH YOUR MEDICATIONS? NO . WHEN DID YOU LAST EAT? ____ . WHEN DID YOU LAST DRINK? ____ . WHAT DID YOU LAST DRINK? ____ . NAME OF PERSON DRIVING YOU HOME? ____ . DO YOU HAVE ANY OTHER QUESTIONS OR CONCERNS NO . EXAMINATION GENERAL EXAMINATION: GENERALNO ACUTE DISTRESS, WELL NOURISHED AND HYDRATED. PSYCHAPPROPRIATE MOOD AND AFFECT , ORIENTED X 3. ASSESSMENTS OTHER CHRONIC PAIN - G89.29 (PRIMARY) TREATMENT OTHER CHRONIC PAIN REFILL DICLOFENAC SODIUM TABLET DELAYED RELEASE, 50 MG, 1 TABLET WITH FOOD OR MILK, ORALLY, BID, 90 DAYS, 180 TABLET CLINICAL NOTES: 58-YEAR-OLD FEMALE IN FOR CHRONIC PAIN FOLLOW-UP. GIVEN PRESENTING SYMPTOMS RECOMMENDED CONTINUATION OF CURRENT MEDICATION REGIMEN WITH FOLLOW-UP IN 3 MONTHS. PATIENT DOES ADMIT TO NEW DIAGNOSIS OF STAGE III KIDNEY DISEASE THIS STUDENT OFFICER HAS MESSAGED PATIENT'S PRIMARY CARE PROVIDER WITH REGARDS TO STOPPING THE DICLOFENAC AND SWITCHING MEDICATIONS GIVEN THE NEW DIAGNOSIS. PATIENT HAS EXPRESSED UNDERSTANDING OF AND WAS IN AGREEMENT WITH TREATMENT PLAN. GIVEN TIME TO ASK QUESTIONS AND EXPRESS CONCERNS. TELEHEALTH VISIT PERFORMED OF USING. TIME SPENT WITH PATIENT 4 MINUTES. OTHERS CLINICAL NOTES: PRE SCREEN CALL DONE 09/14/19 EM. DISPOSITION & COMMUNICATION FOLLOW UP 3 MONTHS (REASON: CHRONIC PAIN) ELECTRONICALLY SIGNED BY EDIE NICHOLSON ON 09/16/2019 AT 08:31 AM EDT DISCLAIMER : THIS IS A VISIT SUMMARY EXTRACTED FROM THE [employer] CHART. IT IS NOT A COPY OF THE [employer] PROGRESS NOTE. ALMA
== END ==
LOC: M PAIN 11:15 → M TMPAIN 11:15
PROVIDERS: ATTEND Family Medicine
DX: G89.29 Other chronic pain (principal); E11.9 Type 2 diabetes mellitus without complications; N18.3 Chronic kidney disease, stage 3 (moderate); Z79.84 Long term (current) use of oral hypoglycemic drugs; Z79.899 Other long term (current) drug therapy; Z88.1 Allergy status to other antibiotic agents; Z88.8 Allergy status to other drugs, medicaments and biological substances; Z91.010 Allergy to peanuts; Z87.891 Personal history of nicotine dependence

== ENCOUNTER → 2019-09-29 | Outpatient (CLI) | payer OTHER ==
[~2019-09-29] MED LIST changes: +ACET1TAB16 PO; +GINK40CA2 PO; +MAGN400C2 PO; +METF-838 PO; +SERT-138 PO; +VITA1CAP25 PO
[2019-09-29 12:06] LABS: BASO % 0.7 % (0.0-1.0); EOS # 0.4 10^3/uL (0.0-0.5); EOS % 6.5 % (0.0-3.0); HEMATOCRIT 42.1 % (36.0-47.0); HEMOGLOBIN 13.3 g/dl (12.0-15.5); LYMPH # 1.2 10^3/uL (1.5-5.0); LYMPH % 22.2 % (24.0-44.0); MEAN CORPUSCULAR HEMOGLOBIN 27.7 pg (27.0-33.0); MEAN CORPUSCULAR HGB CONC 31.6 g/dl (32.0-36.5); MEAN CORPUSCULAR VOLUME 87.7 fl (80.0-96.0); MONO # 0.3 10^3/uL (0.0-0.8); NEUTROPHILS # 3.6 10^3/uL (1.5-8.5); NEUTROPHILS % 64.1 % (36.0-66.0); PLATELET COUNT, AUTOMATED 248 10^3/uL (150-450); WHITE BLOOD COUNT 5.5 10^3/uL (4.0-10.0)
[2019-09-29 12:30] LABS: ALBUMIN 3.6 GM/DL (3.2-5.2); BILIRUBIN,TOTAL 0.4 MG/DL (0.2-1.0); CALCIUM LEVEL 9.2 MG/DL (8.5-10.1); CREATININE FOR GFR 1.11 MG/DL (0.55-1.30); GLOMERULAR FILTRATION RATE 53.6 (>51); TOTAL PROTEIN 7.4 GM/DL (6.4-8.2)
[2019-10-01 11:09] LABS: CA 125 17.2 U/ML (<30.2)
== END ==
LOC: M LAB 11:43
PROVIDERS: ATTEND Nurse Practitioner Family
DX: C54.1 Malignant neoplasm of endometrium (principal)

== ENCOUNTER → 2019-10-21 | Outpatient (CLI) | payer OTHER ==
--- NOTE | 2019-10-21 10:27 | REPMRS ---
Patient History The patient states she has not had a clinical breast exam in over a year. Family history of endometrial cancer at age 57 in mother. No Hormone Replacement Therapy 3D TOMOSYNTHESIS WAS PERFORMED. [facility] for [facility] cancer [facility] 11.9%. [facility]. Digital Woman Screen Mammo: October 21, 2019 - Exam #: [id number] Bilateral CC and MLO view(s) were taken. Technologist: Magda Laughlin, Technologist Prior study comparison: September 02, 2018, bilateral digital woman screen mammo performed at [facility]. June 26, 2017, digital woman screen mammo performed at [facility]. FINDINGS: There are scattered fibroglandular densities. There has been no change in the appearance of the mammogram from the prior studies. There is a mild amount of residual fibroglandular tissue which is fairly symmetric. There is no interval development of dominant mass, architectural distortion, or clustered microcalcification suggestive of malignancy. Assessment: BI-RADS/ACR category 1 mammogram. Negative Mammogram. Recommendation Routine screening mammogram in 1 year (for women over age 40). This mammogram was interpreted with the aid of an FDA-approved computer-aided dectection system. Electronically Signed By: Mohit Romo MD 10/21/19 [id number]
== END ==
LOC: M WHC 09:25
PROVIDERS: ATTEND Internal Medicine Hematology & Oncology
DX: Z12.31 Encounter for screening mammogram for malignant neoplasm of breast (principal); Z80.49 Family history of malignant neoplasm of other genital organs

== ENCOUNTER → 2019-12-15 | Outpatient (CLI) | payer OTHER | LOC: M PAIN 09:45 | PROVIDERS: ATTEND Family Medicine | DX: G89.29 Other chronic pain (principal) ==

== ENCOUNTER → 2019-12-17 | Outpatient (CLI) | payer OTHER | LOC: M LABSMTC 12:35 | PROVIDERS: ATTEND Orthopaedic Surgery | DX: Z11.59 Encounter for screening for other viral diseases (principal); Z20.828 Contact with and (suspected) exposure to other viral communicable diseases ==

== ENCOUNTER → 2020-03-14 | Outpatient (REF) | payer OTHER ==
[2020-03-14 11:07] LABS: HEMOGLOBIN A1c 7.1 %
[2020-03-14 11:22] LABS: CALCIUM LEVEL 9.7 MG/DL (8.8-10.2); CREATININE FOR GFR 1.21 MG/DL (0.55-1.30); GLOMERULAR FILTRATION RATE 48.3 (>45); POTASSIUM SERUM 4.3 MEQ/L (3.5-5.1)
== END ==
LOC: M SFHCPLAZ 08:22
PROVIDERS: ATTEND Family Medicine
DX: E11.22 Type 2 diabetes mellitus with diabetic chronic kidney disease (principal); I10 Essential (primary) hypertension; E83.42 Hypomagnesemia

== ENCOUNTER → 2020-03-28 | Outpatient (CLI) | payer OTHER ==
--- NOTE | 2020-03-30 00:56 | ECWPNPC ---
PATIENT NAME: NIDA WORTHINGTON : 1960 GENDER: FEMALE VISIT DATE: 03/28/2020 DISCHARGE DATE: 03/28/20 0000 VISIT LOCKED DATE TIME: PHYSICIAN: ERA GUERRERO PHYSICIAN PAGER NO: ACTIVE RESOURCE: ERA GUERRERO REASON FOR APPOINTMENT 1. 3 MONTH F/U HISTORY OF PRESENT ILLNESS GENERAL: - 59-YEAR-OLD FEMALE IN FOR CHRONIC PAIN FOLLOW-UP. SHE RATES HER PAIN CURRENTLY AT A 3 OUT OF 10 AND DESCRIBES IT ACHING, STABBING, AND THROBBING. PATIENT IS NOT CURRENTLY TAKING MEDICATIONS AND STATES SHE IS CONTROLLING HER PAIN WITH DISTRACTION. FALL RISK SCREENING: SCREENING :ONE FALL WITHOUT INJURY IN THE PAST YEAR PAIN SCREENING: PATIENT HAS A COMPLAINT OF ACUTE OR CHRONIC PAIN :YES LOCATION OF PAIN:OTHER: WHOLE BODY INTENSITY OF PAIN (SCALE OF 1 TO 10):3 WHAT DOES YOUR PAIN FEEL LIKE:ACHING, STABBING, THROBBING DURATION:CONTINOUS, CONSTANT PAIN IS INCREASED BY:ACTIVITIES PAIN IS DECREASED BY:OTHERS DISTRACTIONS TREATMENT/MEDICATIONS USED TO MANAGE PAIN:NONE LEVEL OF RELIEF FROM PAIN TREATMENTS IN THE PAST:0% PAIN HAS INTERFERED WITH THE FOLLOWING:BATHING/DRESSING, WALKING ABILITY, HOUSEWORK, SLEEP, TRANSPORTATION, TOILETING NURSING NOTE: -. PAIN CENTER INTAKE QUESTIONS: DO YOU HAVE A HISTORY OF MRSA? :NO DO YOU TAKE A BLOOD THINNERS? :NO DO YOU HAVE ANY BLEEDING DISORDERS? :NO ANY NEW NUMBNESS OR WEAKNESS IN YOUR LEGS OR ARMS? :YES ALL EXTREMITIES ANY PACEMAKER,DEFIBRILLATOR, OR DORSAL COLUMN STIMULATOR? :NO DO YOU HAVE ANY RASHES OR OPEN SORES? :YES RASH TO SCALP PT STATES FROM STRESS PIKING ARE YOU ALLERGIC TO IV DYE? :NO ARE YOU DIABETIC? :YES ANY NEW PROBLEMS WITH YOUR MEDICATIONS? :NO HAVE YOU RECEIVED A VACCINE IN THE PAST 30 DAYS? :YES IF SO WHAT VACCINE AND WHEN? FLU VACCINE LAST WEEK DO YOU PLAN TO RECEIVE A VACCINE IN THE NEXT 21 DAYS? :NO DO YOU NEED ANY PRESCRIPTION? :NO DO YOU TAKE ANY IMMUNOSUPPRESSIVE MEDICATIONS? :NO IS THERE A CHANCE YOU COULD BE ? :NO ARE YOU BREAST FEEDING? :NO CURRENT MEDICATIONS TAKING GABAPENTIN 600 MG TABLET 1 CAPSULE ORALLY THREE TIMES A DAY TAKING SYSTANE ULTRA 0.4-0.3 % SOLUTION 1 DROP INTO AFFECTED EYE NEEDED OPHTHALMIC 24 TIME(S) A DAY TAKING ONETOUCH VERIO - STRIP USE TO TEST ONCE A DAY TAKING MAGNESIUM CHLORIDE 64 MG TABLET DELAYED RELEASE 1 TABLET ORALLY ONCE A DAY TAKING VITAMIN D (CHOLECALCIFEROL) TAKING LANCETS - MISCELLANEOUS 1 LANCET DX: E11.9 DAILY BEFORE BREAKFAST TAKING ONE TOUCH VERIO STRIPS TEST STRIP _ 1 STRIP STRIP DX:E11.65 TWICE A DAY TAKING MULTIVITAMIN ADULT TAKING PEN NEEDLES 5/16" DIRECTED DAILY; DX: E11.9 TAKING ALCOHOL PADS 70 % PAD DIRECTED DAILY; DX E11.9 TAKING LOSARTAN POTASSIUM 25 MG TABLET 1 TABLET ORALLY ONCE A DAY TAKING LANTUS SOLOSTAR 100 UNIT/ML SOLUTION PEN-INJECTOR 8 UNITS SUBCUTANEOUS BEFORE BEDTIME TAKING ZOLOFT 100 MG TABLET 2 TABLET ORALLY ONCE A DAY TAKING EZETIMIBE 10 MG TABLET 1 TABLET ORALLY ONCE A DAY TAKING METFORMIN HCL ER 500 MG TABLET EXTENDED RELEASE 24 HOUR 1 TABLET WITH EVENING MEAL ORALLY TWICE A DAY TAKING ZONISAMIDE 50 MG CAPSULE 1 CAPSULE ORALLY TWICE A DAY NOT-TAKING ONDANSETRON HCL 4 MG TABLET 1 TABLET NEEDED FOR NAUSEA ORALLY EVERY 6 HOURS NOT-TAKING ACETAMINOPHEN-CODEINE 300-30 MG TABLET 1 TABLET NEEDED ORALLY DAILY FOR PAIN MDD1 NOT-TAKING BASAGLAR KWIKPEN 100 UNIT/ML SOLUTION PEN-INJECTOR 10 UNITS SUBCUTANEOUS DAILY NOT-TAKING VITAMIN B12 MEDICATION LIST REVIEWED AND RECONCILED WITH THE PATIENT PAST MEDICAL HISTORY DIABETES MELLITUS TYPE 2 ENDOMETRIAL CANCER, STAGE 3 DIAGNOSED IN 2013 - S/P HYSTERECTOMY (DR LEACH). S/P CHEMO (DR DE LUNA) AND RADIATION (DR MENDENHALL); FOLLOWS WITH [facility] ONC HYPERLIPIDEMIA - STATIN INTOLERANT HYPERTENSION DEPRESSION AND ANXIETY - PLANS TO START TLS PSORIASIS - ELBOW AND ARMPIT; NEUROTIC EXCORIATIONS - DR. ORTIZ MORBID OBESITY, BMI 52 GLAUCOMA, DRY EYE - FOLLOWS WITH DR. ADRIAN HX PULMONARY NODULE, STABLE - PREVIUOSLY SAW DR. FITZGERALD, NO FURTHER SCANS NEEDED FORMER SMOKER, QUIT IN 2003 OA - SAW DR. GRULLON IN THE PAST FIBROMYALGIA SEVERE CARPAL TUNNAL BOTH WRISTS BULGING DISCS IN LOWER BACK; CHRONIC LBP, THORACIC BACK PAIN, CERVICAL BACK PAIN - PAIN CLINIC AGING BRAIN - DR. 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 MYRAID GENETIS TEST NEG 2018 LIFETIME BREAST CANCER RISK 16 % SHINGLES VACCINES: NOVEMBER 2017 HX OF ABNORMAL PAP-ASCUS,FER; NOW S/P HYSTERECTOMY REGADENOSEN NUCLEAR SPECT NORMAL IN 12/2018 STAGE III KIDNEY DISEASE ALLERGIES ERYTHROMYCIN: HIVES - ALLERGY PEANUTS: ANAPHYLAXIS - ALLERGY LUMIGAN: BURNING EYES - ALLERGY TRULICITY: SEVERE DIARRHEA - SIDE EFFECTS BUPROPION HCL: SEIZURES - CONTRAINDICATION LISINOPRIL: COUGH - SIDE EFFECTS ATORVASTATIN CALCIUM: MUSCLE WEAKNESS - SIDE EFFECTS SURGICAL HISTORY C SECTION X2 93, 96 TUBAL LIGATION 11/28/95 CHOLECYSTECTOMY 2000 ORAL SURGERY COLONOSCOPY 2000, 2015 TOTAL HYSTERECTOMY RALDonis AND BSO DR LEACH 10/2014 COLONOSCOPY-POLYP REMOVAL - RESULTS WNL 09/2015 ORAL SURGERY 06/2016 BIOPSY LEFT THIGH - LIPOMA COLONOSCOPY - 1 POLYP, REPEAT IN 5 YEARS - DR. MEI 02/2019 FAMILY HISTORY FATHER: 74 YRS, LIVER CANCER, TYPE II DIABETES, RHEUMATOID, DIAGNOSED WITH DIABETES, OTHER MALIGNANT NEOPLASM OF UNSPECIFIED SITE MOTHER: ALIVE 76 YRS, UTERINE CANCER, DX AT AGE 64, TYPE II DIABETES, CORONARY ARTERY DISEASE, HTN, RHEUMATOID, HYPERTENSION, DIABETES, OTHER MALIGNANT NEOPLASM OF UNSPECIFIED SITE SIBLINGS: BROTHER WITH KIDNEY CANCER, HYPERTENSION, DIABETES SON(S): ASPERGER'S SYNDROME DAUGHTER(S): ANXIETY, DEPRESSION, ASTHMA MATERNAL UNCLE: THROAT CANCER ,ANOTHER LIVER CANCER MATERNAL AUNT: [place] SOCIAL HISTORY GENERAL: TOBACCO USE ARE YOU A:FORMER SMOKER HOW LONG HAS IT BEEN SINCE YOU LAST SMOKED?> 10 YEARS LATEX QUESTIONNAIRE LATEX ALLERGY : HAVE YOU EVER DEVELOPED ANY TYPE OF REACTION AFTER HANDLING LATEX PRODUCTS SUCH RUBBER GLOVES, CONDOMS, DIAPHRAGMS, BALLOONS, SOCKS, OR UNDERWEAR?NO LATEX ALLERGY : HAVE YOU EVER DEVELOPED ANY TYPE OF REACTION DURING OR AFTER DENTAL APPOINTMENT, VAGINAL/RECTAL EXAMINATION, SURGICAL PROCEDURE, OR ANY OTHER EXPOSURE?NO LATEX RISK : HAVE YOU EVER HAD ANY DIFFICULTY BREATHING OR HIVES AFTER EATING OR HANDLING ANY FRUITS, OR VEGETABLES; SUCH KIWI, BANANAS, STONE FRUITS, OR CHESTNUTSNO LATEX RISK : DO YOU HAVE A PREVIOUS PERSONAL HISTORY OF MORE THAN NINE SURGERIES, SPINA BIFIDA, OR REPEATED CATHERIZATIONS? NO LATEX RISK : ARE YOU FREQUENTLY EXPOSED TO LATEX PRODUCTS IN YOUR OCCUPATION?NO DATE ASKED : 03/28/2020 BMI CARE GOAL FOLLOW-UP ABOVE NORMAL BMI FOLLOW-UPGIVING ENCOURAGEMENT TO EXERCISE, LIFESTYLE EDUCATION REGARDING DIET ALCOHOL SCREENING DID YOU HAVE A DRINK CONTAINING ALCOHOL IN THE PAST YEAR?NO POINTS0 INTERPRETATIONNEGATIVE RECREATIONAL DRUG USE DRUG USE?NO CAFFEINE CAFFEINE USE?YES 1 CUP COFFEE A DAY SEXUAL HX HAD SEX IN THE LAST 12 MONTHS (VAGINAL, ORAL, OR ANAL)?YES WITHMEN ONLY PREVENTION STRATEGIES DISCUSSED:OTHER USE PROTECTION?NO HAVE YOU EVER HAD AN STD?NO HIV / HEP-C SCREENING HIV TEST OFFERED TO PATIENT:YES DATE OFFERED:11/04/2016 TEST ACCEPTED:NO HEP-C TEST OFFERED TO PATIENT:YES DATE OFFERED:11/04/2016 REASON:PATIENT DECLINED TEST ACCEPTED:YES CHEONDOISM [id number] NONE LANGUAGE LANGUAGES SPOKEN:DANISH EDUCATION LEVEL OF EDUCATION:COLLEGE BACHELORS DEGREE IN PSYCHOLOGY, ELEMENTARY EDUCATION LEARNING BARRIERS / SPECIAL NEEDS CHANGE FROM LAST VISIT?NO 03/31/19 BARRIERS TO LEARNING?NO HEARING IMPAIRED?NO STATED CONCERN FOR HEARING LOSS, NO FORMAL TESTING YET VISION IMPAIRED?YES COGNITIVELY IMPAIRED?NO :CORRECTIVE LENSES READINESS TO LEARN?YES LEARNING PREFERENCES?NO LEARNING CAPABILITIES PRESENT?YES EMOTIONAL BARRIERS?NO SPECIAL DEVICES?YES :CANE, WALKER POWER CHAIR NEW ACCOUNTS BANKING REPRESENTATIVE NEEDED?NO DOMESTIC VIOLENCE ASSAULTED AT AGE 34.. OCCUPATION: DISABLED 100%. DIET: LIMITED PORTIONS, LOW CARB. EXERCISE: NO REGULAR EXERCISE, HAS NOT EXERCISED IN A FEW YEARS BECAUSE OF THE BLEEDING. MARITAL STATUS: , . OTHERS AT HOME: SPOUSE, CHILDREN. TODAY'S VISIT 09/14/19 PATIENT DESCRIBES PAIN :ACHING, BURNING, HAVE IT ALL THE TIME, SHARP, STABBING, TENDER, THROBBING, SORE, SHOOTING FROM 0-10, WHAT LEVEL IS YOUR PAIN TODAY?4 PRECIPITATING FACTORS NOT TAKING MEDS ALLEVIATING FACTORS MEDS, MOVING AROUND IMPACT ON FUNCTION YES PAIN CLINIC PFS, CLERGY, PUBLIC HEALTH REFERRALS WAS THE PROVIDER NOTIFIED OF ANY PERTINENT INFO?YES HAS THE PATIENT BEEN EDUCATED REGARDING HIS/HER PLAN OF CARE?YES PLEASE DOCUMENT ANY ADDTIONAL DETAILS. TPI INJECTIONS HAS THE PATIENT BEEN EDUCATED REGARDING PAIN, THE RISK FOR PAIN, THE IMPORTANCE OF EFFECTIVE PAIN MANAGEMENT, AND THE PAIN ASSESSMENT PROCESS?YES ADVANCE DIRECTIVE ADVANCE DIRECTIVE DISCUSSED WITH PATIENT:YES PT. HAS HCP DAUGHTER - EVELINE WORTHINGTON [phone] HOSPITALIZATION/MAJOR DIAGNOSTIC PROCEDURE R/T SURGERY DEHYDRATION 2014 REVIEW OF SYSTEMS CONSTITUTIONAL: ANY RECENT FEVER NO . CHILLS NO . WEIGHT CHANGE OF UNKNOWN REASONS NO . GASTROENTEROLOGY: NEW UNEXPLAINABLE CHANGES IN BOWEL CONTROL NO . CONSTIPATION NO . GENITOURINARY: ANY NEW CHANGE IN BLADDER CONTROL? NO . NEUROLOGY: NEW ONSET DIZZINESS OR NEUROLOGICAL CHANGES NOT MENTIONED NO . NEW NUMBNESS OR PAIN PATTERNS NOT MENTIONED AND PERTINENT TO TODAY'S VISIT NO . CARDIOLOGY: NEW CHEST PRESSURE NO . NEW CHEST PAIN NO . RESPIRATORY: UNEXPLAINABLE COUGH NO . NEW SHORTNESS OF BREATH NO . VITAL SIGNS WT 314 LBS, HT 60", BMI 61.32 INDEX, BP 134/63 MM HG, HR 70 /MIN, RR 18 /MIN, TEMP 96.3 F, OXYGEN SAT % 96%, SAFE IN ENV? (Y/N) Y, NA INITIALS TN 09:38, REVIEWED BY: EM. EXAMINATION GENERAL EXAMINATION: GENERALNO ACUTE DISTRESS, WELL NOURISHED AND HYDRATED. PSYCHAPPROPRIATE MOOD AND AFFECT . LUNGS:CLEAR TO AUSCULTATION BILATERALLY, NO WHEEZES, RHONCHI, RALES. HEART:NO MURMURS, REGULAR RATE AND RHYTHM. ASSESSMENTS LOW BACK PAIN AT MULTIPLE SITES - M54.5 (PRIMARY) TREATMENT LOW BACK PAIN AT MULTIPLE SITES NOTES: 59-YEAR-OLD FEMALE IN FOR CHRONIC PAIN FOLLOW-UP. PATIENT DOES NOT WISH TO BE ON PAIN MEDICATIONS AND/OR RECEIVE INJECTIONS AT THIS TIME IT IS RECOMMENDED THAT SHE GO TO AN -NEEDED BASIS. PATIENT HAS EXPRESSED UNDERSTANDING OF AND WAS IN AGREEMENT WITH TREATMENT PLAN. GIVEN TIME TO ASK QUESTIONS AND EXPRESS CONCERNS. PROCEDURE CODES FA211 ESTABILISHED PATIENT [facility] F[facility] CHARGE DISPOSITION & COMMUNICATION FOLLOW UP NEEDED (REASON: BACK PAIN) ELECTRONICALLY SIGNED BY EDIE NICHOLSON ON 03/29/2020 AT 08:45 AM EST DISCLAIMER : THIS IS A VISIT SUMMARY EXTRACTED FROM THE [employer] CHART. IT IS NOT A COPY OF THE [employer] PROGRESS NOTE. AL[place]
== END ==
LOC: M PAIN 09:45
PROVIDERS: ATTEND Family Medicine
DX: M54.5 Low back pain (principal); E11.9 Type 2 diabetes mellitus without complications; E78.5 Hyperlipidemia, unspecified; I12.9 Hypertensive chronic kidney disease with stage 1 through stage 4 chronic kidney disease, or unspecified chronic kidney disease; F32.9 Major depressive disorder, single episode, unspecified; F41.9 Anxiety disorder, unspecified; H40.9 Unspecified glaucoma; E66.01 Morbid (severe) obesity due to excess calories; Z68.43 Body mass index [BMI] 50.0-59.9, adult; L40.9 Psoriasis, unspecified; M79.7 Fibromyalgia; G56.03 Carpal tunnel syndrome, bilateral upper limbs; N18.30 Chronic kidney disease, stage 3 unspecified; Z87.891 Personal history of nicotine dependence; Z79.84 Long term (current) use of oral hypoglycemic drugs; Z79.899 Other long term (current) drug therapy; Z88.1 Allergy status to other antibiotic agents; Z88.8 Allergy status to other drugs, medicaments and biological substances; Z91.010 Allergy to peanuts

== ENCOUNTER → 2020-04-05 | Outpatient (CLI) | payer OTHER ==
[~2020-04-05] MED LIST changes: +BASA100I SC; +GABA600T4 PO; +GASTROGRAFIN SOLUTION 30ML (Q9963) As Ordered ONE; +ISOVUE-370 76% 100ML VIAL As Ordered ONE; +ZONI100C17 PO
--- NOTE | 2020-04-06 05:40 | REP ---
INDICATION: ENDOMETRIAL CA, RT SIDED ABD PAIN. COMPARISON: 02/14/2016 TECHNIQUE: Axial contrast-enhanced images from the lung bases to the pubic symphysis using 100 cc Isovue 370 intravenous contrast material. Delayed images of the abdomen obtained along with coronal and sagittal reformations.. This CT examination was performed using the following dose reduction techniques: Automated exposure control, adjustment of mA and/or kv according to the patient's size, and the use of iterative reconstruction technique. FINDINGS: Lung bases are clear. Visualized heart and pericardium normal. Hepatosteatosis is appreciated without focal hepatic lesion identified. Portal venous phase demonstrates subtle rounded splenic hypodensities measuring up to 3.5 cm which appear isodense to splenic parenchyma on delayed images. The pancreas and bilateral adrenal glands are normal. Evidence for prior cholecystectomy. The kidneys demonstrate age-related cortical atrophy without hydronephrosis or perinephric stranding. The enteric system including stomach, small, and large bowel appears normal. No evidence for obstruction or acute inflammatory process. Normal terminal ileum and appendix are identified in the right lower quadrant. Few scattered sigmoid diverticula noted without acute diverticulitis. Pelvis demonstrates normal collapsed bladder and evidence for prior hysterectomy. No ascites. No free air. No intraperitoneal or retroperitoneal adenopathy. Abdominal aorta and vasculature appear normal. Musculoskeletal structures demonstrates age-related degenerative changes without acute osseous abnormality. IMPRESSION: 1. Hepatosteatosis without focal hepatic lesion identified. 2. Rounded splenic isodense areas on portal venous phase which appear isodense on delayed images may represent normal transient filling variants rather than true lesions. Consider short-term follow-up ultrasound examination. 3. No further obvious or suspicious lesions to suggest metastatic disease or recurrence. 4. Chronic changes as above. <Electronically signed by Zia Black > 04/06/20 [id number]
== END ==
LOC: M RAD 13:07
PROVIDERS: ATTEND Internal Medicine Medical Oncology
DX: R10.9 Unspecified abdominal pain (principal); K76.0 Fatty (change of) liver, not elsewhere classified
CPT/HCPCS: 74177; Q9963; Q9967

== ENCOUNTER → 2020-06-06 | Outpatient (REF) | payer OTHER ==
[~2020-06-06] MED LIST changes: -GASTROGRAFIN SOLUTION 30ML (Q9963) As Ordered ONE; -ISOVUE-370 76% 100ML VIAL As Ordered ONE; -LISI-542 PO; +LISI-898 PO
== END ==
LOC: M SFHCPLAZ 17:23
PROVIDERS: ATTEND Family Medicine
DX: B83.9 Helminthiasis, unspecified (principal)

== ENCOUNTER → 2020-06-13 | Outpatient (REF) | payer OTHER | LOC: M SFHCPLAZ 16:59 | PROVIDERS: ATTEND Family Medicine | DX: B83.9 Helminthiasis, unspecified (principal) ==

== ENCOUNTER → 2020-06-21 | Outpatient (REF) | payer OTHER | LOC: M SFHCPLAZ 16:37 | PROVIDERS: ATTEND Family Medicine | DX: B83.9 Helminthiasis, unspecified (principal) ==

== ENCOUNTER → 2020-07-17 | Outpatient (CLI) | payer OTHER ==
--- NOTE | 2020-07-17 10:01 | REP ---
INDICATION: F/U OF SPLENIC FINDINGS COMPARISON: CT dated 04/05/2020 TECHNIQUE: Real time manriquez scale ultrasound examination of the left upper quadrant using curved array transducer. FINDINGS: Spleen is mildly enlarged measuring 12.4 x 5.8 x 12.0 cm (splenic index: 863) Without focal splenic lesion identified. No perisplenic fluid collection. Left kidney is normal in appearance and reniform shape without hydronephrosis and measures 10.4 x 5.7 x 4.8 cm. No ascites in the left upper quadrant. IMPRESSION: Mild splenomegaly. Findings on recent CT are as suspected and likely represented transient filling variations rather than true splenic abnormalities/lesions. <Electronically signed by Zia Black > 07/17/20 [id number]
== END ==
LOC: M RAD 08:29
PROVIDERS: ATTEND Internal Medicine Medical Oncology
DX: R93.5 Abnormal findings on diagnostic imaging of other abdominal regions, including retroperitoneum (principal); R16.1 Splenomegaly, not elsewhere classified

== ENCOUNTER → 2020-07-27 | Outpatient (REF) | payer OTHER ==
[2020-07-27 13:13] LABS: HEMOGLOBIN A1c 6.7 %
[2020-07-27 13:32] LABS: ALBUMIN 3.7 GM/DL (3.2-5.2); BILIRUBIN,TOTAL 0.3 MG/DL (0.2-1.0); CREATININE FOR GFR 1.17 MG/DL (0.55-1.30); GLOMERULAR FILTRATION RATE 50.2 (>45); POTASSIUM SERUM 4.6 MEQ/L (3.5-5.1); TOTAL PROTEIN 7.2 GM/DL (6.4-8.2)
== END ==
LOC: M SFHCPLAZ 09:01
PROVIDERS: ATTEND Family Medicine
DX: N18.31 Chronic kidney disease, stage 3a (principal); E11.22 Type 2 diabetes mellitus with diabetic chronic kidney disease

== ENCOUNTER → 2020-09-29 | Outpatient (CLI) | payer OTHER ==
[~2020-09-29] MED LIST changes: +ZOLO100T PO
== END ==
LOC: M LABSMTC 11:47
PROVIDERS: ATTEND Anesthesiology
DX: Z01.812 Encounter for preprocedural laboratory examination (principal); Z20.822 Contact with and (suspected) exposure to COVID-19

== ENCOUNTER 2020-10-04 06:39 | Day surgery (SDC) | payer OTHER ==
[~2020-10-04] VITALS: Ht 152.4 cm; Wt 137.0 kg
[~2020-10-04 06:39] MED LIST changes: +NS 1,000 ML IV ONE
[2020-10-04] MEDS ORDERED: fentaNYL 100 MCG/2 ML INJECTION (J3010) As Ordered ONE (07:00)
[2020-10-04] MEDS ORDERED: LOSA25TA14 PO (07:23)
[2020-10-04] MEDS ORDERED: propofoL 200 MG/20 ML VIAL As Ordered ONE (07:39)
[2020-10-04] MEDS ORDERED: LIDOCAINE 2% 100MG/5ML SDV (FOR ANES.) As Ordered ONE (07:39)
--- NOTE | 2020-10-04 07:53 | ROOR ---
Patient Name: Shanthi Gallagher Procedure Date: 10/04/2020 7:38 AM Date of : 1960 Age: 60 Room: [facility] Gender: Female Note Status: Finalized Procedure: Upper Endoscopy + Biopsies Indications: Abdominal pain in the right upper quadrant, Heartburn Providers: Wood Marcos MD Referring MD: Yun Peralta MD Requesting Provider: Medicines: Monitored Anesthesia Care Complications: No immediate complications. Procedure: Pre-Anesthesia Assessment: - The heart rate, respiratory rate, oxygen saturations, blood pressure, adequacy of pulmonary ventilation, and response to care were monitored throughout the procedure. The Endoscope was introduced through the mouth, and advanced to the second part of duodenum. The upper GI endoscopy was accomplished without difficulty. The patient tolerated the procedure well. Findings: The Z-line was variable and was found 40 cm from the incisors. Multiple biopsies were obtained with cold forceps for evaluation to rule out Shaikh's Esophagus randomly at the gastroesophageal junction. A small hiatal hernia was present. No other significant abnormalities were identified in a careful examination of the stomach. Biopsies were taken with a cold forceps in the gastric antrum for Helicobacter pylori testing. The exam of the duodenum was otherwise normal. Impression: - Z-line variable, 40 cm from the incisors. - Small hiatal hernia. - Multiple biopsies were obtained at the gastroesophageal junction. - Biopsies were taken with a cold forceps for Helicobacter pylori testing. - The examination was otherwise normal. Recommendation: - Patient has a contact number available for emergencies. The signs and symptoms of potential delayed complications were discussed with the patient. Return to normal activities tomorrow. Written discharge instructions were provided to the patient. - Resume previous diet. - Discharge patient to home. - Continue present medications. - Await pathology results. - Telephone GI clinic for pathology results in 1 week. - Repeat upper endoscopy for surveillance based on pathology results. - Return to referring physician. - The findings and recommendations were discussed with the patient's family. Procedure Code(s): --- Professional --- 96414, Esophagogastroduodenoscopy, flexible, transoral; with biopsy, single or multiple Diagnosis Code(s): --- Professional --- K22.8, Other specified diseases of esophagus K44.9, Diaphragmatic hernia without obstruction or gangrene R10.11, Right upper quadrant pain R12, Heartburn CPT copyright 2019 [employer]. All rights reserved. The codes documented in this report are preliminary and upon makeup instructor review may be revised to meet current compliance requirements. Wood Marcos MD Wood Marcos MD 10/04/2020 7:52:14 AM Electronically signed by Wood Marcos MD Number of Addenda: 0 Note Initiated On: 10/04/2020 7:38 AM Estimated Blood Loss: Estimated blood loss: none.
[2020-10-04 08:10] VITALS: BP 134/69
== END 2020-10-04 08:14 | disposition home or self-care (01) ==
LOC: M OPP 06:39
PROVIDERS: ATTEND Internal Medicine Gastroenterology
DX: K22.8 Other specified diseases of esophagus (principal); K44.9 Diaphragmatic hernia without obstruction or gangrene; R10.11 Right upper quadrant pain; R12 Heartburn; Z79.84 Long term (current) use of oral hypoglycemic drugs; Z79.899 Other long term (current) drug therapy; Z88.1 Allergy status to other antibiotic agents; Z88.8 Allergy status to other drugs, medicaments and biological substances; Z91.010 Allergy to peanuts
CPT/HCPCS: 43239; 88305; J3010

== ENCOUNTER → 2020-10-23 | Outpatient (REF) | payer OTHER ==
[~2020-10-23] MED LIST changes: +COVI30VI IM; +D31000TA2 PO; +LOSA25TA14 PO; +MAGN500T12 PO; -NS 1,000 ML IV ONE; +ONE50TAB3 PO
[2020-10-23 14:10] LABS: CALCIUM LEVEL 9.5 MG/DL (8.8-10.2); CREATININE FOR GFR 1.08 MG/DL (0.55-1.30); GLOMERULAR FILTRATION RATE 54.9 (>45); POTASSIUM SERUM 4.1 MEQ/L (3.5-5.1); PTH INTACT 32.5 PG/ML (18.5-88.0); THYROID STIMULATING HORMONE 1.72 uIU/ML (0.358-3.740)
== END ==
LOC: M SFHCPLAZ 08:49
PROVIDERS: ATTEND Family Medicine
DX: E83.52 Hypercalcemia (principal); L60.3 Nail dystrophy

== ENCOUNTER → 2020-12-06 | Outpatient (REF) | payer OTHER | LOC: M SFHCWAGY 13:03 | PROVIDERS: ATTEND Nurse Practitioner Women's Health | DX: Z12.72 Encounter for screening for malignant neoplasm of vagina (principal); Z85.42 Personal history of malignant neoplasm of other parts of uterus ==

== ENCOUNTER → 2020-12-06 | Outpatient (CLI) | payer OTHER ==
--- NOTE | 2020-12-06 14:11 | REPMRS ---
Patient History The patient states she has not had a clinical breast exam in over a year. Family history of endometrial cancer at age 57 in mother. No Hormone Replacement Therapy Patient states no breast complaints today. Patient has signed MRS History Sheet. Digital Woman Screen Mammo: December 06, 2020 - Exam #: [id number] Bilateral CC and MLO view(s) were taken. Technologist: Magda Laughlin, Technologist Prior study comparison: October 21, 2019, bilateral digital woman screen mammo performed at [facility]. September 02, 2018, bilateral digital woman screen mammo performed at [facility]. June 26, 2017, digital woman screen mammo performed at [facility]. FINDINGS: The breast tissue is almost entirely fat. The Volpara volumetric breast density category is: A. There has been no change in the appearance of the mammogram from the prior studies. There is no interval development of dominant mass, architectural distortion, or grouped microcalcification typical of malignancy. 3-D tomosynthesis shows no additional findings. Assessment: BI-RADS/ACR category 1 mammogram. Negative Mammogram. Recommendation Routine screening mammogram of both breasts in 1 year (for women over age 40). This patient's [facility] Lifetime Breast Cancer RIsk is estimated at 11.5 %. This mammogram was interpreted with the aid of an FDA-approved computer-aided dectection system. Electronically Signed By: Viral Orr MD 12/06/20 0189
== END ==
LOC: M WHC 10:32
PROVIDERS: ATTEND Nurse Practitioner Women's Health
DX: Z12.31 Encounter for screening mammogram for malignant neoplasm of breast (principal)

== ENCOUNTER → 2020-12-18 | Outpatient (CLI) | payer OTHER ==
[2020-12-18 11:09] LABS: CALCIUM LEVEL 9.7 MG/DL (8.8-10.2); CREATININE FOR GFR 1.17 MG/DL (0.55-1.30); GLOMERULAR FILTRATION RATE 50.1 (>45); POTASSIUM SERUM 4.3 MEQ/L (3.5-5.1)
[2020-12-18 11:38] LABS: HEMOGLOBIN A1c 6.9 %
== END ==
LOC: M PLALAB 08:51
PROVIDERS: ATTEND Family Medicine
DX: N18.31 Chronic kidney disease, stage 3a (principal); E11.22 Type 2 diabetes mellitus with diabetic chronic kidney disease

== ENCOUNTER → 2021-02-15 | Outpatient (CLI) | payer OTHER ==
--- NOTE | 2021-02-19 14:21 | SLEEPCENT ---
DATE: 02/15/2021 ORDERED BY: Cristin Handley NP Nocturnal polysomnography was performed for evaluation of sleep physiology in this patient with a history of excessive somnolence. Nine hours and 7 minutes of data were reviewed. There were 437.5 minutes of sleep identified. Sleep latency was mildly prolonged at 28.5 minutes. REM latency was more so prolonged at 298.5 minutes. Sleep architecture showed fragmentation and poor progression. Overall sleep efficiency was 80.7%. The electrocardiogram showed a sinus rhythm with an average heart rate of 65 beats per minute. EEG showed normal waveforms for wake and sleep. There were 99 respiratory events identified of 10 seconds in duration or greater for an apnea-hypopnea index of 13.6. The events were primarily obstructive, more frequent but not exclusive to the supine posture. Arousals from respiratory events occurred 3 times per hour, and oxygen desaturations were seen into the 70s. There was some limb activity noted in the EMG leads but no trains of 30 events. Limb movement arousal index was only 5.1. IMPRESSION: Obstructive sleep apnea syndrome (G47.33). Apnea-hypopnea index 13.6. RECOMMENDATION: The patient should be encouraged to return to [facility]. In the interim, alcohol and sedative avoidance should be practiced and caution exercised during the operation of motor vehicles. cc: ALAN MORENO MD
== END ==
LOC: M SLEEP 20:00
PROVIDERS: ATTEND Nurse Practitioner Adult Health
DX: G47.30 Sleep apnea, unspecified (principal)

== ENCOUNTER → 2021-08-29 | Outpatient (CLI) | payer OTHER ==
[~2021-08-29] MED LIST changes: -ACET1TAB16 PO; +ACET300T48 PO; -D31000TA2 PO; -LISI-898 PO; +LISI5TAB11 PO; +LOSA25TA13 PO; -LOSA25TA14 PO; +VITA100093 PO
[2021-08-29 10:37] LABS: HEMOGLOBIN A1c 6.6 %
[2021-08-29 10:43] LABS: BLOOD UREA NITROGEN 20 MG/DL (7-18); CALCIUM LEVEL 9.7 MG/DL (8.8-10.2); CARBON DIOXIDE LEVEL 27 MEQ/L (21-32); CHLORIDE LEVEL 107 MEQ/L (98-107); CREATININE FOR GFR 0.99 MG/DL (0.55-1.30); GLOMERULAR FILTRATION RATE > 60.0 (>45); GLUCOSE, FASTING 122 MG/DL (70-100); POTASSIUM SERUM 4.1 MEQ/L (3.5-5.1); SODIUM LEVEL 141 MEQ/L (136-145)
== END ==
LOC: M PLALAB 08:39
PROVIDERS: ATTEND Family Medicine
DX: E11.22 Type 2 diabetes mellitus with diabetic chronic kidney disease (principal)

== ENCOUNTER 2021-09-20 09:54 | Outpatient (RCR) | payer OTHER ==
[~2021-09-20 09:54] MED LIST changes: -ZONI100C17 PO; +ZONI100C67 PO
[2021-09-27] MEDS ORDERED: CIPR-249 PO (17:08)
[2021-09-27] MEDS ORDERED: FLOM0.4C39 PO (17:08)
[2021-09-27] MEDS ORDERED: HYDR-3713 PO (17:08)
[2021-10-25] MEDS ORDERED: TAMS1CAP17 PO (12:31)
[2021-10-25] MEDS ORDERED: ZOLO100T PO (12:31)
[2021-10-25] MEDS ORDERED: IRON1TAB2 PO (12:33)
== END 2021-10-16 ==
LOC: M PT 09:54
PROVIDERS: ATTEND Family Medicine
DX: M47.896 Other spondylosis, lumbar region (principal); M11.89 Other specified crystal arthropathies, multiple sites; G89.29 Other chronic pain; M47.892 Other spondylosis, cervical region; G56.03 Carpal tunnel syndrome, bilateral upper limbs; M15.0 Primary generalized (osteo)arthritis; G62.0 Drug-induced polyneuropathy

== ENCOUNTER 2021-09-27 09:46 | Emergency (ER) | payer OTHER ==
[~2021-09-27] VITALS: Ht 152.4 cm; Wt 136.4 kg
[2021-09-27 13:00] LABS: BASO % 0.1 % (0.0-1.0); EOS % 0.4 % (0.0-3.0); HEMATOCRIT 34.2 % (36.0-47.0); HEMOGLOBIN 11.2 g/dl (12.0-15.5); LYMPH # 0.6 10^3/uL (1.5-5.0); MEAN CORPUSCULAR HEMOGLOBIN 28.4 pg (27.0-33.0); MEAN CORPUSCULAR HGB CONC 32.7 g/dl (32.0-36.5); MEAN CORPUSCULAR VOLUME 86.6 fl (80.0-96.0); MONO # 0.6 10^3/uL (0.0-0.8); NEUTROPHILS # 6.2 10^3/uL (1.5-8.5); NEUTROPHILS % 83.2 % (36.0-66.0); PLATELET COUNT, AUTOMATED 173 10^3/uL (150-450); RED BLOOD COUNT 3.95 10^6/uL (4.00-5.40); WHITE BLOOD COUNT 7.5 10^3/uL (4.0-10.0)
[2021-09-27 13:24] LABS: ALBUMIN 2.9 GM/DL (3.2-5.2); BILIRUBIN,DIRECT 0.2 MG/DL (0.0-0.2); BILIRUBIN,TOTAL 0.5 MG/DL (0.2-1.0); TOTAL PROTEIN 6.5 GM/DL (6.4-8.2)
[2021-09-27] MEDS ORDERED: NS 1,000 ML IV ONE ×2 (13:35→16:35)
[2021-09-27] MEDS ORDERED: MORPHINE 4 MG/ML 1ML VIAL/SYRINGE IV ONE (13:35)
[2021-09-27] MEDS ORDERED: ONDANSETRON 4MG/2ML VIAL IV ONE (13:35)
[2021-09-27] MEDS ORDERED: ISOVUE-370 76% 100ML VIAL As Ordered ONE (13:51)
[2021-09-27] MEDS ORDERED: KETOROLAC 30 MG/ML 1ML VIAL IV ONE (16:35)
[2021-09-27] MEDS ORDERED: TAMSULOSIN 0.4 MG CAP PO ONE (16:35)
[2021-09-27] MEDS ORDERED: cefTRIAXone SOD 1 GM in D5W MINI-BAG PLUS 50 ML IV ONE (16:35)
[2021-09-27] MEDS ORDERED: CIPR-249 PO (17:08)
[2021-09-27] MEDS ORDERED: HYDR-3713 PO (17:08)
[2021-09-27] MEDS ORDERED: FLOM0.4C39 PO (17:08)
[2021-09-27 18:13] VITALS: BP 130/60
== END 2021-09-27 18:26 | disposition home or self-care (01) ==
LOC: M ED 09:46 → EDBD 09:46 → M ED 18:26
DX: N20.1 Calculus of ureter (principal); N10 Acute pyelonephritis; I10 Essential (primary) hypertension; K57.92 Diverticulitis of intestine, part unspecified, without perforation or abscess without bleeding; E11.9 Type 2 diabetes mellitus without complications; F41.9 Anxiety disorder, unspecified; F32.A Depression, unspecified; Z79.4 Long term (current) use of insulin; Z79.899 Other long term (current) drug therapy; Z88.8 Allergy status to other drugs, medicaments and biological substances; Z91.010 Allergy to peanuts
CPT/HCPCS: 71045; 74177; 80047; 80076; 81001; 83690; 85025; 87186; 87486; 87581; 87633; 87798; 96361; 96365; 96375; 99284; J0696; J1885; J2270; J2405; Q9967

== ENCOUNTER → 2021-10-22 | Outpatient (CLI) | payer OTHER ==
[~2021-10-22] MED LIST changes: +CIPR-249 PO; +FLOM0.4C39 PO; +HYDR-3713 PO
[2021-10-22 15:49] LABS: APPEARANCE, URINE CLOUDY (CLEAR); BACTERIA, URINE AUTO 1+ (NEGATIVE); BILIRUBIN, URINE AUTO NEGATIVE (NEGATIVE); BLOOD, URINE BLOOD NEGATIVE (NEGATIVE); COLOR, URINE YELLOW (YELLOW); GLUCOSE, URINE (UA) AUTO NEGATIVE (NEGATIVE); KETONE, URINE AUTO NEGATIVE (NEGATIVE); LEUKOCYTE ESTERASE, URINE AUTO 3+ (NEGATIVE); MUCUS, URINE SMALL (NEGATIVE); NITRITE, URINE AUTO NEGATIVE (NEGATIVE); PROTEIN, URINE AUTO 1+ mg/dL (NEGATIVE); RBC, URINE AUTO 16 /HPF (0-3); SPECIFIC GRAVITY URINE AUTO 1.011 (1.002-1.035); SQUAMOUS EPITHELIAL CELL UR AU 4 /HPF (0-6); TRANSITIONAL EPITHELIAL AUTO <1 /HPF; UROBILINOGEN, URINE AUTO 0.2 mg/dL (0.0-2.0); WBC, URINE AUTO TNTC /HPF (0-3)
== END ==
LOC: M PLALAB 13:49
PROVIDERS: ATTEND Physician Assistant
DX: N20.1 Calculus of ureter (principal)

== ENCOUNTER → 2021-10-31 | Outpatient (CLI) | payer OTHER ==
[~2021-10-31] MED LIST changes: +IRON1TAB2 PO; +PROHANCE 279.3MG/ML 15ML VIAL ONE; +TAMS1CAP17 PO
== END ==
LOC: M PLAIMG 07:23
PROVIDERS: ATTEND Internal Medicine Medical Oncology
DX: C54.1 Malignant neoplasm of endometrium (principal); C78.89 Secondary malignant neoplasm of other digestive organs; C85.90 Non-Hodgkin lymphoma, unspecified, unspecified site

== ENCOUNTER → 2021-11-01 | Outpatient (CLI) | payer OTHER ==
[~2021-11-01] MED LIST changes: +OXYB5TAB10 PO; -PROHANCE 279.3MG/ML 15ML VIAL ONE
== END ==
LOC: M LABSMTC 09:12
PROVIDERS: ATTEND Anesthesiology
DX: Z01.818 Encounter for other preprocedural examination (principal); Z11.52 Encounter for screening for COVID-19

== ENCOUNTER 2021-11-02 09:34 | Day surgery (SDC) | payer OTHER ==
[~2021-11-02] VITALS: Ht 152.4 cm; Wt 134.7 kg
[~2021-11-02 09:34] MED LIST changes: +CIPROFLOXACIN 400 MG in IV 1 EA IV ONE; -OXYB5TAB10 PO
[2021-11-02] MEDS ORDERED: INSULIN LISPRO (NovoLOG) PER UNIT SC PRN (10:20)
[2021-11-02] MEDS ORDERED: LR 1,000 ML IV SCH ×2 (10:20→14:35)
[2021-11-02] MEDS ORDERED: LevoFLOXacin IV 500 MG in IV 1 EA IV ONE (11:35)
[2021-11-02] MEDS ORDERED: ISOVUE-300 61% 50ML VIAL As Ordered ONE (12:39)
[2021-11-02] MEDS ORDERED: propofoL 200 MG/20 ML VIAL As Ordered ONE (12:54)
[2021-11-02] MEDS ORDERED: LIDOCAINE 2% 100MG/5ML SDV (FOR ANES.) As Ordered ONE (12:54)
[2021-11-02] MEDS ORDERED: dexameTHASONE 4 MG/ML 1ML VIAL (J1100 PER 1MG) As Ordered ONE (12:54)
[2021-11-02] MEDS ORDERED: MIDAZOLAM INJ 2MG/2ML VIAL (J2250 PER 1MG) As Ordered ONE (12:54)
[2021-11-02] MEDS ORDERED: ONDANSETRON 4MG/2ML VIAL As Ordered ONE (12:54)
[2021-11-02] MEDS ORDERED: ROCURONIUM BROMIDE 50 MG/5 ML VIAL As Ordered ONE (12:54)
[2021-11-02] MEDS ORDERED: fentaNYL 100 MCG/2 ML INJECTION As Ordered ONE (12:54)
[2021-11-02] MEDS ORDERED: ACETAMINOPHEN 1000MG 100ML IV BTL (OFIRMEV) (J0131 PER 10MG) As Ordered ONE (14:03)
[2021-11-02] MEDS ORDERED: DESFLURANE 240 ML INHALANT As Ordered ONE (14:03)
[2021-11-02] MEDS ORDERED: SUGAMMADEX SODIUM 500 MG/5 ML VIAL (BRIDION) As Ordered ONE (14:03)
[2021-11-02] MEDS ORDERED: ONDANSETRON 4MG/2ML VIAL IV PRN (14:35)
[2021-11-02] MEDS ORDERED: oxyCODONE 5MG TAB PO PRN (14:35)
[2021-11-02] MEDS ORDERED: fentaNYL 100 MCG/2 ML INJECTION IV PRN (14:35)
[2021-11-02] MEDS ORDERED: OXYB5TAB10 PO (15:04)
[2021-11-02] MEDS ORDERED: PERCOCET 5MG/325MG TAB PO PRN (15:20)
[2021-11-02] MEDS ORDERED: oxyBUTYnin 5 MG TAB PO PRN (15:25)
[2021-11-02 16:06] VITALS: BP 113/56
[2021-11-09 10:09] LABS: CA Oxalate Dihy 60 % (.); Ca Ox Monohydrate 10 % (.); Size 3x3 mm (.)
== END 2021-11-02 16:10 | disposition home or self-care (01) ==
LOC: M SDC 09:34
PROVIDERS: ATTEND Urology
DX: N20.2 Calculus of kidney with calculus of ureter (principal); I10 Essential (primary) hypertension; E78.5 Hyperlipidemia, unspecified; E11.9 Type 2 diabetes mellitus without complications; M10.9 Gout, unspecified; K76.0 Fatty (change of) liver, not elsewhere classified; G47.33 Obstructive sleep apnea (adult) (pediatric); G40.909 Epilepsy, unspecified, not intractable, without status epilepticus; N18.30 Chronic kidney disease, stage 3 unspecified; Z88.1 Allergy status to other antibiotic agents; Z88.8 Allergy status to other drugs, medicaments and biological substances; Z91.010 Allergy to peanuts; Z79.84 Long term (current) use of oral hypoglycemic drugs; Z79.4 Long term (current) use of insulin; Z85.42 Personal history of malignant neoplasm of other parts of uterus; Z92.21 Personal history of antineoplastic chemotherapy; Z92.3 Personal history of irradiation; F41.9 Anxiety disorder, unspecified; F32.A Depression, unspecified; Z79.899 Other long term (current) drug therapy
CPT/HCPCS: 52356; 74420; 82365; C1769; C1894; C2617; J0131; J1100; J1956; J2250; J2405; J3010; Q9967

== ENCOUNTER → 2021-11-05 | Outpatient (CLI) | payer OTHER ==
[~2021-11-05] MED LIST changes: -CIPROFLOXACIN 400 MG in IV 1 EA IV ONE; +OXYB5TAB10 PO
[2021-11-05 13:19] LABS: HEMATOCRIT 39.1 % (36.0-47.0); HEMOGLOBIN 11.9 g/dl (12.0-15.5); MEAN CORPUSCULAR HEMOGLOBIN 26.7 pg (27.0-33.0); MEAN CORPUSCULAR HGB CONC 30.4 g/dl (32.0-36.5); MEAN CORPUSCULAR VOLUME 87.7 fl (80.0-96.0); PLATELET COUNT, AUTOMATED 236 10^3/uL (150-450); RED BLOOD COUNT 4.46 10^6/uL (4.00-5.40); WHITE BLOOD COUNT 5.7 10^3/uL (4.0-10.0)
[2021-11-05 13:23] LABS: ALBUMIN 3.5 GM/DL (3.2-5.2); BILIRUBIN,TOTAL 0.3 MG/DL (0.2-1.0); C REACTIVE PROTEIN QUANTITATIV 2.38 MG/DL (0.00-0.30); CALCIUM LEVEL 9.7 MG/DL (8.8-10.2); CHOLESTEROL RISK RATIO 2.587 (<5); CREATININE FOR GFR 1.34 MG/DL (0.55-1.30); FREE T4 1.21 NG/DL (0.76-1.46); GLOMERULAR FILTRATION RATE 42.7 (>45); POTASSIUM SERUM 4.9 MEQ/L (3.5-5.1); THYROID STIMULATING HORMONE 1.86 uIU/ML (0.358-3.740); TOTAL PROTEIN 7.1 GM/DL (6.4-8.2)
[2021-11-05 13:24] LABS: TOTAL 25(OH) VITAMIN D 33.1 NG/ML (30.0-100.0)
== END ==
LOC: M PLALAB 09:04
PROVIDERS: ATTEND Internal Medicine Hematology
DX: E11.65 Type 2 diabetes mellitus with hyperglycemia (principal)

== ENCOUNTER → 2021-12-06 | Outpatient (CLI) | payer OTHER ==
[~2021-12-06] MED LIST changes: +VICT18IN
[2021-12-06 13:57] LABS: BASO % 0.7 % (0.0-1.0); EOS # 0.5 10^3/uL (0.0-0.5); EOS % 8.2 % (0.0-3.0); HEMATOCRIT 39.5 % (36.0-47.0); LYMPH % 34.9 % (24.0-44.0); MEAN CORPUSCULAR HEMOGLOBIN 26.9 pg (27.0-33.0); MEAN CORPUSCULAR HGB CONC 30.4 g/dl (32.0-36.5); MEAN CORPUSCULAR VOLUME 88.6 fl (80.0-96.0); MONO # 0.4 10^3/uL (0.0-0.8); MONO % 6.4 % (2.0-8.0); NEUTROPHILS # 2.8 10^3/uL (1.5-8.5); NEUTROPHILS % 49.4 % (36.0-66.0); PLATELET COUNT, AUTOMATED 254 10^3/uL (150-450); RED BLOOD COUNT 4.46 10^6/uL (4.00-5.40); WHITE BLOOD COUNT 5.6 10^3/uL (4.0-10.0)
[2021-12-06 14:33] LABS: ALBUMIN 3.6 GM/DL (3.2-5.2); BILIRUBIN,TOTAL 0.3 MG/DL (0.2-1.0); CALCIUM LEVEL 9.7 MG/DL (8.8-10.2); GLOMERULAR FILTRATION RATE 59.8 (>45); PERCENT SATURATION 17.5 % (13.2-45.0); POTASSIUM SERUM 5.1 MEQ/L (3.5-5.1); TOTAL PROTEIN 7.3 GM/DL (6.4-8.2)
[2021-12-06 15:01] LABS: TOTAL 25(OH) VITAMIN D 25.9 NG/ML (30.0-100.0)
== END ==
LOC: M LAB 13:12
PROVIDERS: ATTEND Internal Medicine Medical Oncology
DX: C54.1 Malignant neoplasm of endometrium (principal)

== ENCOUNTER → 2022-02-27 | Outpatient (CLI) | payer OTHER ==
[2022-02-27 14:30] LABS: HEMOGLOBIN 12.8 g/dl (12.0-15.5); MEAN CORPUSCULAR HEMOGLOBIN 27.7 pg (27.0-33.0); MEAN CORPUSCULAR HGB CONC 31.2 g/dl (32.0-36.5); MEAN CORPUSCULAR VOLUME 88.7 fl (80.0-96.0); PLATELET COUNT, AUTOMATED 218 10^3/uL (150-450); RED BLOOD COUNT 4.62 10^6/uL (4.00-5.40); WHITE BLOOD COUNT 4.5 10^3/uL (4.0-10.0)
[2022-02-27 15:27] LABS: ALBUMIN 3.6 GM/DL (3.2-5.2); BILIRUBIN,TOTAL 0.3 MG/DL (0.2-1.0); C REACTIVE PROTEIN QUANTITATIV 0.68 MG/DL (0.00-0.30); CALCIUM LEVEL 9.3 MG/DL (8.8-10.2); CHOLESTEROL RISK RATIO 2.619 (<5); CREATININE FOR GFR 1.1 MG/DL (0.55-1.30); FREE T4 1.2 NG/DL (0.76-1.46); GLOMERULAR FILTRATION RATE 53.6 (>45); MALB URINE SIEMENS 18.7 MG/L; MAU/CREAT RATIO 13.4 MCG/MG (0.0-30.0); PERCENT SATURATION 14.4 % (13.2-45.0); POTASSIUM SERUM 4.5 MEQ/L (3.5-5.1); THYROID STIMULATING HORMONE 1.92 uIU/ML (0.358-3.740); TOTAL PROTEIN 7.2 GM/DL (6.4-8.2)
[2022-02-27 15:32] LABS: HEMOGLOBIN A1c 5.7 %
[2022-02-27 15:57] LABS: TOTAL 25(OH) VITAMIN D 31.2 NG/ML (30.0-100.0)
== END ==
LOC: M PLALAB 10:02
PROVIDERS: ATTEND Internal Medicine Hematology
DX: N18.31 Chronic kidney disease, stage 3a (principal); E11.22 Type 2 diabetes mellitus with diabetic chronic kidney disease

== ENCOUNTER → 2022-03-20 | Outpatient (CLI) | payer OTHER | LOC: M WHC 09:58 | PROVIDERS: ATTEND Internal Medicine Hematology | DX: R42 Dizziness and giddiness (principal) ==

== ENCOUNTER 2022-07-26 11:33 | Emergency (ER) | payer OTHER ==
[~2022-07-26] VITALS: Ht 152.4 cm; Wt 133.2 kg
[2022-07-26 14:20] VITALS: BP 139/75
== END 2022-07-26 14:27 | disposition home or self-care (01) ==
LOC: EDBD 11:33 → M ED 11:33
DX: S70.02XA Contusion of left hip, initial encounter (principal); S80.02XA Contusion of left knee, initial encounter; S60.221A Contusion of right hand, initial encounter; M54.2 Cervicalgia; V00.831A Fall from motorized mobility scooter, initial encounter; N18.9 Chronic kidney disease, unspecified; E66.01 Morbid (severe) obesity due to excess calories; F17.200 Nicotine dependence, unspecified, uncomplicated; Z88.1 Allergy status to other antibiotic agents; Z88.8 Allergy status to other drugs, medicaments and biological substances; Z91.010 Allergy to peanuts; Z79.4 Long term (current) use of insulin; Z79.811 Long term (current) use of aromatase inhibitors; Z79.899 Other long term (current) drug therapy

== ENCOUNTER → 2022-07-26 | Outpatient (CLI) | payer OTHER | LOC: M PLAIMG 10:34 | PROVIDERS: ATTEND Urology | DX: N20.0 Calculus of kidney (principal) ==

== ENCOUNTER → 2022-09-05 | Outpatient (CLI) | payer OTHER ==
[2022-09-05 16:15] LABS: BASO % 0.9 % (0.0-1.0); EOS # 0.4 10^3/uL (0.0-0.5); EOS % 7.9 % (0.0-3.0); HEMATOCRIT 41.2 % (36.0-47.0); HEMOGLOBIN 12.9 g/dl (12.0-15.5); LYMPH # 1.2 10^3/uL (1.5-5.0); LYMPH % 25.5 % (24.0-44.0); MEAN CORPUSCULAR HEMOGLOBIN 27.8 pg (27.0-33.0); MEAN CORPUSCULAR HGB CONC 31.3 g/dl (32.0-36.5); MEAN CORPUSCULAR VOLUME 88.8 fl (80.0-96.0); MONO # 0.3 10^3/uL (0.0-0.8); MONO % 7.3 % (2.0-8.0); NEUTROPHILS # 2.7 10^3/uL (1.5-8.5); PLATELET COUNT, AUTOMATED 233 10^3/uL (150-450); RED BLOOD COUNT 4.64 10^6/uL (4.00-5.40); WHITE BLOOD COUNT 4.7 10^3/uL (4.0-10.0)
[2022-09-05 16:41] LABS: ALBUMIN 3.5 G/DL (3.2-5.2); ALKALINE PHOSPHATASE 70 U/L (46-116); ALT/SGPT 14 U/L (7.0-40); AST/SGOT 24 U/L (<34); BILIRUBIN,TOTAL 0.4 MG/DL (0.3-1.2); BLOOD UREA NITROGEN 17 MG/DL (9-23); CALCIUM LEVEL 9.4 MG/DL (8.3-10.6); CARBON DIOXIDE LEVEL 30 MMOL/L (20-31); CHLORIDE LEVEL 104 MMOL/L (98-107); CREATININE FOR GFR 0.94 MG/DL (0.55-1.30); FERRITIN 39.5 NG/ML (7.3-270.7); GLOMERULAR FILTRATION RATE > 60.0 (>45); GLUCOSE, FASTING 139 MG/DL (74-106); IRON (FE) 54 UG/DL (50-170); PERCENT SATURATION 13.8 % (13.2-45.0); POTASSIUM SERUM 4.4 MMOL/L (3.5-5.1); SODIUM LEVEL 141 MMOL/L (136-145); TOTAL IRON BINDING CAPACITY 390 UG/DL (250-425); TOTAL PROTEIN 6.7 G/DL (5.7-8.2)
== END ==
LOC: M PLALAB 12:22
PROVIDERS: ATTEND Internal Medicine Medical Oncology
DX: C54.1 Malignant neoplasm of endometrium (principal)

== ENCOUNTER → 2022-09-13 | Outpatient (CLI) | payer OTHER ==
[~2022-09-13] MED LIST changes: +GASTROGRAFIN SOLUTION 30ML As Ordered ONE; +ISOVUE-370 76% 100ML VIAL As Ordered ONE
== END ==
LOC: M RAD 08:43
PROVIDERS: ATTEND Internal Medicine Medical Oncology
DX: C54.1 Malignant neoplasm of endometrium (principal); N32.89 Other specified disorders of bladder; J84.89 Other specified interstitial pulmonary diseases; K76.0 Fatty (change of) liver, not elsewhere classified; Z90.49 Acquired absence of other specified parts of digestive tract; R16.1 Splenomegaly, not elsewhere classified; N28.89 Other specified disorders of kidney and ureter; K57.30 Diverticulosis of large intestine without perforation or abscess without bleeding; I25.84 Coronary atherosclerosis due to calcified coronary lesion; K42.9 Umbilical hernia without obstruction or gangrene
CPT/HCPCS: 74177; Q9963; Q9967

== ENCOUNTER → 2022-10-10 | Outpatient (CLI) | payer OTHER ==
[~2022-10-10] MED LIST changes: -GASTROGRAFIN SOLUTION 30ML As Ordered ONE; -ISOVUE-370 76% 100ML VIAL As Ordered ONE
== END ==
LOC: M SOG 08:26
PROVIDERS: ATTEND Physician Assistant
DX: M18.0 Bilateral primary osteoarthritis of first carpometacarpal joints (principal); M85.841 Other specified disorders of bone density and structure, right hand; M85.842 Other specified disorders of bone density and structure, left hand

== ENCOUNTER → 2022-10-29 | Outpatient (CLI) | payer OTHER ==
[2022-10-29 10:11] LABS: HEMATOCRIT 43.1 % (36.0-47.0); HEMOGLOBIN 13.4 g/dl (12.0-15.5); MEAN CORPUSCULAR HEMOGLOBIN 27.5 pg (27.0-33.0); MEAN CORPUSCULAR HGB CONC 31.1 g/dl (32.0-36.5); MEAN CORPUSCULAR VOLUME 88.3 fl (80.0-96.0); PLATELET COUNT, AUTOMATED 206 10^3/uL (150-450); RED BLOOD COUNT 4.88 10^6/uL (4.00-5.40); WHITE BLOOD COUNT 5.5 10^3/uL (4.0-10.0)
[2022-10-29 10:28] LABS: HEMOGLOBIN A1c 6.1 % (4.0-6.0)
[2022-10-29 10:42] LABS: C REACTIVE PROTEIN QUANTITATIV 1.9 MG/DL (<1.0)
[2022-10-29 10:43] LABS: ALBUMIN 3.6 G/DL (3.2-5.2); BILIRUBIN,TOTAL 0.4 MG/DL (0.3-1.2); CALCIUM LEVEL 8.5 MG/DL (8.3-10.6); CHOLESTEROL RISK RATIO 2.33 (<5); CREATININE FOR GFR 1.22 MG/DL (0.55-1.30); CREATININE, URINE 180.8 MG/DL; GLOMERULAR FILTRATION RATE 47.4 (>45); HDL CHOLESTEROL 63.4 MG/DL (>40); LDL CHOLESTEROL 71.8 MG/DL (<100); MAU/CREAT RATIO 4.4 MCG/MG (0.0-30.0); NON-HDL-C 84.6 MG/DL; POTASSIUM SERUM 4.7 MMOL/L (3.5-5.1); TOTAL 25(OH) VITAMIN D 23.6 NG/ML (20.0-100.0); TOTAL PROTEIN 6.6 G/DL (5.7-8.2)
[2022-10-29 10:44] LABS: FREE T4 1.07 NG/DL (0.89-1.76); THYROID STIMULATING HORMONE 1.396 uIU/ML (0.55-4.78)
== END ==
LOC: M PLALAB 08:53
PROVIDERS: ATTEND Internal Medicine Hematology
DX: E11.65 Type 2 diabetes mellitus with hyperglycemia (principal)

== ENCOUNTER 2022-11-15 12:07 | Day surgery (SDC) | payer OTHER ==
[~2022-11-15] VITALS: Ht 152.4 cm; Wt 133.8 kg
[~2022-11-15 12:07] MED LIST changes: +VICT18IN2 SQ
[2022-11-15] MEDS ORDERED: MIDAZOLAM INJ 2MG/2ML VIAL As Ordered ONE (16:42)
[2022-11-15] MEDS ORDERED: fentaNYL 100 MCG/2 ML INJECTION As Ordered ONE (16:42)
[2022-11-15] MEDS ORDERED: ONDANSETRON 4MG 2ML VIAL As Ordered ONE (16:42)
[2022-11-15] MEDS ORDERED: propofoL 200 MG/20 ML VIAL As Ordered ONE ×2 (16:42→17:08)
[2022-11-15] MEDS ORDERED: LIDOCAINE 2% 100MG/5ML SDV (FOR ANES.) As Ordered ONE (16:42)
[2022-11-15 18:00] VITALS: BP 129/65; TEMP 97.9; O2SAT 95
== END 2022-11-15 18:05 | disposition home or self-care (01) ==
LOC: M SDC 12:07
PROVIDERS: ATTEND Orthopaedic Surgery Hand Surgery
DX: G56.02 Carpal tunnel syndrome, left upper limb (principal); I10 Essential (primary) hypertension; E78.5 Hyperlipidemia, unspecified; G47.33 Obstructive sleep apnea (adult) (pediatric); M79.7 Fibromyalgia; G40.909 Epilepsy, unspecified, not intractable, without status epilepticus; L40.9 Psoriasis, unspecified; F41.9 Anxiety disorder, unspecified; F32.A Depression, unspecified; E11.9 Type 2 diabetes mellitus without complications; Z79.84 Long term (current) use of oral hypoglycemic drugs; Z79.899 Other long term (current) drug therapy; Z87.891 Personal history of nicotine dependence; Z92.21 Personal history of antineoplastic chemotherapy; Z92.3 Personal history of irradiation; Z85.42 Personal history of malignant neoplasm of other parts of uterus; Z91.010 Allergy to peanuts; Z88.1 Allergy status to other antibiotic agents; Z88.8 Allergy status to other drugs, medicaments and biological substances; M10.9 Gout, unspecified
CPT/HCPCS: 29848; J1100; J2250; J2405; J3010

== ENCOUNTER → 2022-12-30 | Outpatient (CLI) | payer OTHER | LOC: M PLAIMG 11:59 | PROVIDERS: ATTEND Internal Medicine Hematology | DX: M79.671 Pain in right foot (principal); M77.31 Calcaneal spur, right foot; M77.32 Calcaneal spur, left foot ==

== ENCOUNTER → 2023-01-31 | Day surgery (SDC) | payer OTHER ==
[~2023-01-31] VITALS: Ht 152.4 cm; Wt 133.6 kg
[~2023-01-31] MED LIST changes: +GLYCOPYRROLATE INJ 0.2 MG/ML 2 ML VIAL As Ordered ONE; +KETAMINE HCL 200MG/20ML VIAL As Ordered ONE; +KETOROLAC 60MG 2ML VIAL As Ordered ONE; +LIDOCAINE 2% 100MG/5ML SDV (FOR ANES.) As Ordered ONE; +LR 1,000 ML IV SCH; +MIDAZOLAM INJ 2MG/2ML VIAL As Ordered ONE; +ONDANSETRON 4MG 2ML VIAL As Ordered ONE; +VICT18IN SC; +fentaNYL 100 MCG/2 ML INJECTION As Ordered ONE; +propofoL 200 MG/20 ML VIAL As Ordered ONE
[2023-01-31 08:41] VITALS: BP 116/56; TEMP 97.9; O2SAT 96
== END | disposition home or self-care (01) ==
LOC: M SDC 06:05
PROVIDERS: ATTEND Orthopaedic Surgery Hand Surgery
DX: G56.01 Carpal tunnel syndrome, right upper limb (principal); I10 Essential (primary) hypertension; E78.5 Hyperlipidemia, unspecified; I73.9 Peripheral vascular disease, unspecified; Z92.21 Personal history of antineoplastic chemotherapy; Z92.3 Personal history of irradiation; E11.9 Type 2 diabetes mellitus without complications; M10.9 Gout, unspecified; Z91.010 Allergy to peanuts; Z88.8 Allergy status to other drugs, medicaments and biological substances; Z88.1 Allergy status to other antibiotic agents; Z79.84 Long term (current) use of oral hypoglycemic drugs; Z79.899 Other long term (current) drug therapy; M79.7 Fibromyalgia; G43.909 Migraine, unspecified, not intractable, without status migrainosus; G47.33 Obstructive sleep apnea (adult) (pediatric); F41.9 Anxiety disorder, unspecified; F32.A Depression, unspecified; L40.9 Psoriasis, unspecified
CPT/HCPCS: 29848; J0665; J2250; J2405; J3010

== ENCOUNTER → 2023-03-12 | Outpatient (CLI) | payer OTHER ==
[~2023-03-12] MED LIST changes: -GLYCOPYRROLATE INJ 0.2 MG/ML 2 ML VIAL As Ordered ONE; -KETAMINE HCL 200MG/20ML VIAL As Ordered ONE; -KETOROLAC 60MG 2ML VIAL As Ordered ONE; -LIDOCAINE 2% 100MG/5ML SDV (FOR ANES.) As Ordered ONE; -LR 1,000 ML IV SCH; -MIDAZOLAM INJ 2MG/2ML VIAL As Ordered ONE; -ONDANSETRON 4MG 2ML VIAL As Ordered ONE; -OXYB5TAB10 PO; +OXYB5TAB11 PO; -fentaNYL 100 MCG/2 ML INJECTION As Ordered ONE; -propofoL 200 MG/20 ML VIAL As Ordered ONE
[2023-03-12 12:13] LABS: HEMATOCRIT 42.9 % (36.0-47.0); HEMOGLOBIN 13.3 g/dl (12.0-15.5); MEAN CORPUSCULAR HEMOGLOBIN 28.1 pg (27.0-33.0); MEAN CORPUSCULAR VOLUME 90.5 fl (80.0-96.0); PLATELET COUNT, AUTOMATED 210 10^3/uL (150-450); RED BLOOD COUNT 4.74 10^6/uL (4.00-5.40); WHITE BLOOD COUNT 4.5 10^3/uL (4.0-10.0)
[2023-03-12 12:19] LABS: C REACTIVE PROTEIN QUANTITATIV 0.9 MG/DL (<1.0)
[2023-03-12 12:25] LABS: ALBUMIN 3.5 G/DL (3.2-5.2); BILIRUBIN,TOTAL 0.4 MG/DL (0.3-1.2); CALCIUM LEVEL 9.1 MG/DL (8.3-10.6); CHOLESTEROL RISK RATIO 2.75 (<5); CREATININE FOR GFR 1.01 MG/DL (0.55-1.30); FREE T4 1.03 NG/DL (0.89-1.76); GLOMERULAR FILTRATION RATE 58.9 (>45); HDL CHOLESTEROL 61.3 MG/DL (>40); LDL CHOLESTEROL 93.5 MG/DL (<100); NON-HDL-C 107.7 MG/DL; THYROID STIMULATING HORMONE 1.552 uIU/ML (0.55-4.78); TOTAL 25(OH) VITAMIN D 27.5 NG/ML (20.0-100.0); TOTAL PROTEIN 6.7 G/DL (5.7-8.2)
[2023-03-12 12:44] LABS: CREATININE, URINE 164.7 MG/DL; MAU/CREAT RATIO 6.6 MCG/MG (0.0-30.0)
[2023-03-12 13:03] LABS: HEMOGLOBIN A1c 5.6 % (4.0-6.0)
== END ==
LOC: M PLALAB 07:18
PROVIDERS: ATTEND Internal Medicine Hematology
DX: E11.65 Type 2 diabetes mellitus with hyperglycemia (principal)

== ENCOUNTER → 2023-04-21 | Outpatient (CLI) | payer OTHER | LOC: M RAD 13:19 | PROVIDERS: ATTEND Physician Assistant | DX: N32.89 Other specified disorders of bladder (principal); N20.0 Calculus of kidney ==

== ENCOUNTER → 2023-10-20 | Outpatient (CLI) | payer OTHER ==
[~2023-10-20] MED LIST changes: -OXYB5TAB11 PO; +OXYB5TAB14 PO
[2023-10-20 13:18] LABS: BASO % 0.5 % (0.0-1.0); EOS # 0.3 10^3/uL (0.0-0.5); EOS % 5.4 % (0.0-3.0); HEMATOCRIT 40.3 % (36.0-47.0); HEMOGLOBIN 12.8 g/dl (12.0-15.5); LYMPH # 1.3 10^3/uL (1.5-5.0); MEAN CORPUSCULAR HEMOGLOBIN 28.1 pg (27.0-33.0); MEAN CORPUSCULAR HGB CONC 31.8 g/dl (32.0-36.5); MEAN CORPUSCULAR VOLUME 88.4 fl (80.0-96.0); MONO # 0.4 10^3/uL (0.0-0.8); MONO % 6.9 % (2.0-8.0); NEUTROPHILS % 65.7 % (36.0-66.0); PLATELET COUNT, AUTOMATED 236 10^3/uL (150-450); RED BLOOD COUNT 4.56 10^6/uL (4.00-5.40); WHITE BLOOD COUNT 6.1 10^3/uL (4.0-10.0)
[2023-10-20 13:44] LABS: C REACTIVE PROTEIN QUANTITATIV 7.2 MG/DL (<1.0)
[2023-10-20 13:45] LABS: ALBUMIN 3.2 G/DL (3.2-5.2); BILIRUBIN,TOTAL 0.5 MG/DL (0.3-1.2); CALCIUM LEVEL 8.9 MG/DL (8.3-10.6); CREATININE FOR GFR 1.03 MG/DL (0.55-1.30); FREE T4 0.94 NG/DL (0.89-1.76); GLOMERULAR FILTRATION RATE 57.4 (>45); POTASSIUM SERUM 4.3 MMOL/L (3.5-5.1); THYROID STIMULATING HORMONE 1.903 uIU/ML (0.55-4.78); TOTAL 25(OH) VITAMIN D 25.2 NG/ML (20.0-100.0); TOTAL PROTEIN 6.6 G/DL (5.7-8.2)
== END ==
LOC: M PLALAB 10:56
PROVIDERS: ATTEND Internal Medicine Hematology
DX: E11.65 Type 2 diabetes mellitus with hyperglycemia (principal)

== ENCOUNTER → 2024-01-06 | Outpatient (CLI) | payer OTHER | LOC: M WHC 07:54 | PROVIDERS: ATTEND Internal Medicine Hematology | DX: Z12.31 Encounter for screening mammogram for malignant neoplasm of breast (principal); R92.313 Mammographic fatty tissue density, bilateral breasts ==

== ENCOUNTER 2024-02-11 10:14 | Day surgery (SDC) | payer OTHER ==
[~2024-02-11] VITALS: Ht 152.4 cm; Wt 122.0 kg
[~2024-02-11 10:14] MED LIST changes: +GABA-1490 PO; +GABA-1635 PO; -GABA600T4 PO; -GABA800T4 PO; +NS 1,000 ML IV ONE
[2024-02-11] MEDS ORDERED: propofoL 200 MG/20 ML VIAL As Ordered ONE (12:39)
[2024-02-11] MEDS ORDERED: LIDOCAINE 2% 100MG/5ML SDV (FOR ANES.) As Ordered ONE (12:39)
[2024-02-11 13:12] VITALS: TEMP 97.5
[2024-02-11 13:37] VITALS: BP 109/53; O2SAT 98
== END 2024-02-11 13:44 | disposition home or self-care (01) ==
LOC: M OPP 10:14
PROVIDERS: ATTEND Internal Medicine Gastroenterology
DX: Z12.11 Encounter for screening for malignant neoplasm of colon (principal); K64.0 First degree hemorrhoids; K57.30 Diverticulosis of large intestine without perforation or abscess without bleeding; E11.9 Type 2 diabetes mellitus without complications; I10 Essential (primary) hypertension; E78.5 Hyperlipidemia, unspecified; F41.9 Anxiety disorder, unspecified; F32.A Depression, unspecified; Z86.010 Personal history of colon polyps; Z87.891 Personal history of nicotine dependence; Z79.84 Long term (current) use of oral hypoglycemic drugs; Z79.899 Other long term (current) drug therapy

== ENCOUNTER → 2024-12-01 | Outpatient (CLI) | payer OTHER ==
[~2024-12-01] MED LIST changes: +AUGM500T34 PO; +BUPR150T15 PO; -BUPR1TAB53 PO; -FLOM0.4C39 PO; +GABA-284; +ISOVUE-370 76% 100 ML VIAL As Ordered ONE; -NS 1,000 ML IV ONE; +TAMS-18 PO
== END ==
LOC: M RAD 16:34
PROVIDERS: ATTEND Internal Medicine Hematology & Oncology
DX: C54.1 Malignant neoplasm of endometrium (principal)
CPT/HCPCS: 70487; Q9967

== ENCOUNTER → 2024-12-09 | Outpatient (CLI) | payer MEDICARE ==
[~2024-12-09] MED LIST changes: -ISOVUE-370 76% 100 ML VIAL As Ordered ONE; +TIRZ2.5P
== END ==
LOC: M RAD 09:35
PROVIDERS: ATTEND Student in an Organized Health Care Education/Training Program
DX: R22.0 Localized swelling, mass and lump, head (principal); R22.1 Localized swelling, mass and lump, neck

== ENCOUNTER → 2024-12-22 | Outpatient (CLI) | payer MEDICARE ==
[~2024-12-22] MED LIST changes: +ISOVUE-370 76% 100 ML VIAL ONE
== END ==
LOC: M PLAIMG 14:30
PROVIDERS: ATTEND Internal Medicine Hematology & Oncology
DX: C54.1 Malignant neoplasm of endometrium (principal); K57.30 Diverticulosis of large intestine without perforation or abscess without bleeding
CPT/HCPCS: 71260; 74177; Q9967

== ENCOUNTER → 2025-01-04 | Outpatient (CLI) | payer MEDICARE, MEDICAID ==
[~2025-01-04] MED LIST changes: -ISOVUE-370 76% 100 ML VIAL ONE
== END ==
LOC: M RAD 14:46
PROVIDERS: ATTEND Internal Medicine Hematology & Oncology
DX: R22.42 Localized swelling, mass and lump, left lower limb (principal); C54.1 Malignant neoplasm of endometrium

== ENCOUNTER → 2025-01-10 | Outpatient (CLI) | payer MEDICARE, MEDICAID | LOC: M WHC 09:11 | PROVIDERS: ATTEND Student in an Organized Health Care Education/Training Program | DX: Z12.31 Encounter for screening mammogram for malignant neoplasm of breast (principal); R92.313 Mammographic fatty tissue density, bilateral breasts ==